=== PATIENT | female | born 1960 | race Caucasian/White ===

== ENCOUNTER 2017-06-24 16:50 | Inpatient (IN) | payer MEDICAID ==
[2017-06-24] MEDS ORDERED: Sodium Chloride 0.9% 10 ML Syringe FLUSH PRN (18:41)
[2017-06-24] MEDS ORDERED: Sodium Chloride 0.9% 1,000 ML IV SCH (18:45)
--- NOTE | 2017-06-24 18:53 | EDM.PDOC ---
ED HPI GENERAL MEDICAL PROBLEM - General Chief Complaint: General Stated Complaint: [facility] Time Seen by Provider: 06/24/17 18:00 Source of Information: Reports: Patient, EMS History Limitations: Reports: Altered Mental Status - History of Present Illness INITIAL COMMENTS - FREE TEXT/NARRATIVE: 57-year-old female with chronic pain syndromes on chronic narcotic medications as well as Ambien and muscle relaxers presents with 24 hours of decreased alertness and weakness. According to her daughter she's been in bed for 24 hours , very lethargic and they cannot find her pain medication. She is able to answer questions, she denies any pain currently, shortness of breath, denies nausea or vomiting or fever. She was admitted one year ago with a very similar presentation which ended up being misuse of prescription medications. Onset: Unknown/Unsure Severity: Moderate Associated Symptoms: Reports: Weakness. Denies: Chest Pain, Cough, Nausea/ Vomiting, Shortness of Breath Denies Pain Score (Numeric/FACES): 0 - Related Data Allergies Allergy/AdvReac Type Severity Reaction Status Date / Time No Known Allergies Allergy Verified 06/24/17 19:36 Home Meds: Home Meds Zolpidem [Ambien] 10 mg PO BEDTIME 11/15/13 [History] Cyclobenzaprine [Flexeril] 10 mg PO TID 06/02/14 [History] Gabapentin [Gabapentin] 800 mg PO TID 06/02/14 [History] Multiple Vitamin 1 tab PO DAILY 11/26/14 [History] Hydrochlorothiazide 1 tab PO DAILY 01/17/15 [History] DULoxetine HCl [Cymbalta] 60 mg PO BID 01/25/16 [History] Metoprolol Succinate [Toprol XL] 50 mg PO BID 04/12/16 [History] amLODIPine Besylate [Amlodipine Besylate] 10 mg PO DAILY 06/20/16 [History] Gabapentin [Neurontin] 400 mg PO ASDIRECTED 06/24/17 [History] Hydrocodone/Acetaminophen [[place] 7.5-325 Tablet] 1 tab PO BID PRN 06/24/17 [ History] Ibuprofen 600 mg PO Q6H PRN 06/24/17 [History] Lisinopril 40 mg PO DAILY 06/24/17 [History] Morphine Sulfate [Morphine Sulfate ER] 1 tab PO BID 06/24/17 [History] traMADol [Ultram] 50 mg PO BID PRN 06/24/17 [History] traZODone 150 mg PO BEDTIME 06/24/17 [History] Past Medical History Cardiovascular History: Reports: Hypertension Gastrointestinal History: Reports: Other (See Below) Other Gastrointestinal History: esophageal reflux gastroenteritis and colitis 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: Musculoskeletal History: Reports: Other (See Below) Other Musculoskeletal History: back pain herniated lumbar intervertebral disc Neurological History: Reports: CVA Psychiatric History: Reports: Addiction, Depression - Infectious Disease History Infectious Disease History: Reports: Other (See Below) Other Infectious Disease History: unable to obtain - Past Surgical History GI Surgical History: Reports: Cholecystectomy Neurological Surgical History: Reports: Discectomy, Lumbar Spine Social & Family History - Family History Family Medical History: Noncontributory - Tobacco Use Smoking Status *Q: Former Smoker Years of Tobacco use: 30 Packs/Tins Daily: 1 Used Tobacco, but Quit: Yes Month Tobacco Last Used: 08/15/11 Second Hand Smoke Exposure: No - Caffeine Use Caffeine Use: Reports: Other Other Caffeine Use: unknown - Alcohol Use Days Per Week of Alcohol Use: 0 - Recreational Drug Use Recreational Drug Use: No Recreational Drug Type: Reports: Other (see below) Other Recreational Drug Type: unable to obtain ED ROS GENERAL - Review of Systems Review Of Systems: See Below Constitutional: Reports: Weakness. Denies: Fever, Chills Respiratory: Denies: Shortness of Breath, Cough Cardiovascular: Denies: Chest Pain GI/Abdominal: Denies: Abdominal Pain, Nausea, Vomiting Skin: Reports: No Symptoms Neurological: Reports: Weakness ED EXAM, GENERAL - Physical Exam Exam: See Below Exam Limited By: Altered Mental Status General Appearance: Lethargic Eye Exam: Bilateral Eye: Other (Opens eyes to voice, appears to have no disconjugate gaze) Neck: Supple Respiratory/Chest: Lungs Clear Cardiovascular: Regular Rate, Rhythm. No: Tachycardia GI/Abdominal: Soft, Non-Tender Extremities: Normal Inspection (She moves her arms and legs slowly but they are symmetric in strength and coordination) Neurological: Slow to Respond Psychiatric: Depressed Mood, Flat Affect Skin Exam: Warm, Dry Course - Vital Signs Last Recorded V/S: Last Vital Signs Temp 97.5 F 06/24/17 17:29 Pulse 94 06/24/17 19:24 Resp 14 06/24/17 17:29 BP 111/74 06/24/17 19:24 Pulse Ox 97 06/24/17 19:24 - Orders/Labs/Meds Orders: Active Orders 24 hr Category Date Time Status Insert Dowling Catheter [Insert Urinary Catheter] [OM.PC] Care 06/24/17 18:45 Ordered Q24H Peripheral IV Care [RC] . DIRECTED Care 06/24/17 18:41 Active Urinary Catheter Assessment [RC] ASDIRECTED Care 06/24/17 18:40 Active Head wo Cont [CT] Stat Exams 06/24/17 18:02 Taken Sodium Chloride 0.9% [Saline Flush] Med 06/24/17 18:41 Active 10 ml FLUSH ASDIRECTED PRN Peripheral IV Insertion Adult [OM.PC] Routine Oth 06/24/17 18:41 Ordered Medication Orders Acetaminophen (Tylenol) 650 mg PO Q4H PRN PRN Reason: Pain (Mild 1-3)/fever Acetaminophen (Tylenol) 650 mg RECTAL Q4H PRN PRN Reason: Mild pain/fever Haloperidol Lactate (Haldol) 2 mg IVPUSH Q2H PRN PRN Reason: Agitation Potassium Chloride 20 meq/Lidocaine HCl 2 ml/ Sodium Chloride 112 mls @ 50 mls/ hr IV Q2H AKIN Stop: 06/24/17 23:29 Last Admin: 06/24/17 20:33 Dose: 50 mls/hr Potassium Chloride/Sodium Chloride (Normal Saline With 20 Meq Kcl) 1,000 mls @ 125 mls/hr IV ASDIRECTED AKIN Last Admin: 06/24/17 20:26 Dose: 125 mls/hr Lorazepam (Ativan) 0.5 - 1 mg IVPUSH Q2H PRN PRN Reason: Agitation Morphine Sulfate (Morphine) 2 - 4 mg IVPUSH Q4H PRN PRN Reason: Pain (severe 7-10) Last Admin: 06/24/17 20:00 Dose: 2 mg Ondansetron HCl (Zofran Odt) 4 mg PO Q6H PRN PRN Reason: Nausea able to take PO Ondansetron HCl (Zofran) 4 mg IVPUSH Q6H PRN PRN Reason: Nausea/Vomiting Sodium Chloride (Saline Flush) 10 ml FLUSH ASDIRECTED PRN PRN Reason: Keep Vein Open Labs: Laboratory Tests 06/24/17 06/24/17 06/24/17 Range/Units 18:12 18:12 18:12 WBC 18.8 H (4.5-11.0) K/uL RBC 5.57 H (3.30-5.50) M/uL Hgb 16.2 H D (12.0-15.0) g/dL Hct 49.4 H (36.0-48.0) % MCV 89 (80-98) fL MCH 29 (27-31) pg MCHC 33 (32-36) % Plt Count 524 H (150-400) K/uL Neut % (Auto) 84 H (36-66) % Lymph % (Auto) 12 L (24-44) % [place] % (Auto) 4 (2-6) % Eos % (Auto) 0 L (2-4) % Baso % (Auto) 0 (0-1) % Sodium 145 (140-148) mmol/L Potassium 2.6 L* (3.6-5.2) mmol/L Chloride 105 (100-108) mmol/L Carbon Dioxide 26 (21-32) mmol/L Anion Gap 16.6 H (5.0-14.0) mmol/L BUN 14 (7-18) mg/dL Creatinine 2.5 H D (0.6-1.0) mg/dL Est Cr Clr Drug Dosing 23.21 mL/min Estimated GFR (MDRD) 20 L (>60) Glucose 121 H (74-106) mg/dL Calcium 9.3 (8.5-10.1) mg/dL Total Bilirubin 0.3 (0.2-1.0) mg/dL AST 22 (15-37) U/L ALT 14 (12-78) U/L Alkaline Phosphatase 119 H (46-116) U/L Creatine Kinase 2 L (26-192) U/L Total Protein 7.9 (6.4-8.2) g/dL Albumin 3.3 L (3.4-5.0) g/dL Globulin 4.6 H (2.3-3.5) g/dL Albumin/Globulin Ratio 0.7 L (1.2-2.2) Meds: Medications Generic Name Dose Route Start Last Admin Trade Name Freq PRN Reason Stop Dose Admin Acetaminophen 650 mg 06/24/17 19:30 Tylenol PO Q4H PRN Pain (Mild 1-3)/fever Acetaminophen 650 mg 06/24/17 19:30 Tylenol RECTAL Q4H PRN Mild pain/fever Haloperidol Lactate 2 mg 06/24/17 20:03 Haldol IVPUSH Q2H PRN Agitation Potassium Chloride 20 meq/ 112 mls @ 50 mls/hr 06/24/17 19:30 06/24/17 20:33 Lidocaine HCl 2 ml/ Sodium IV 06/24/17 23:29 50 mls/hr Chloride Q2H AKIN Administration Potassium Chloride/Sodium Chloride 1,000 mls @ 125 mls/hr 06/24/17 19:30 05/31 20:26 Normal Saline With 20 Meq Kcl IV 125 mls/hr ASDIRECTED AKIN Administration Lorazepam 0.5 - 1 mg 06/24/17 20:05 Ativan IVPUSH Q2H PRN Agitation Morphine Sulfate 2 - 4 mg 06/24/17 19:30 06/24/17 20:00 Morphine IVPUSH 2 mg Q4H PRN Administration Pain (severe 7-10) Ondansetron HCl 4 mg 06/24/17 19:30 Zofran Odt PO Q6H PRN Nausea able to take PO Ondansetron HCl 4 mg 06/24/17 20:04 Zofran IVPUSH Q6H PRN Nausea/Vomiting Sodium Chloride 10 ml 06/24/17 18:41 Saline Flush FLUSH ASDIRECTED PRN Keep Vein Open Discontinued Medications Generic Name Dose Route Start Last Admin Trade Name Freq PRN Reason Stop Dose Admin Sodium Chloride 1,000 mls @ 999 mls/hr 06/24/17 18:45 06/24/17 19:05 Normal Saline IV 06/24/17 19:46 999 mls/hr BOLUS AKIN Administration Potassium Chloride Confirm 06/24/17 19:57 06/24/17 20:34 Kcl 20 Meq In Water 100 Ml Administered 06/24/17 19:58 Not Given Dose 200 mls @ as directed .ROUTE .STK-MED ONE Lidocaine HCl Confirm 06/24/17 19:57 06/24/17 20:34 Xylocaine-Mpf 1% Administered 06/24/17 19:58 Not Given Dose 5 ml .ROUTE .STK-MED ONE Lorazepam 0.5 mg 06/24/17 19:30 06/24/17 19:42 Ativan IVPUSH 0.5 mg Q4H PRN Administration Agitation - Re-Assessments/Exams Free Text/Narrative Re-Assessment/Exam: 06/24/17 18:52 CBC and CMP were obtained as well as a CK. UA will be obtained for drug screen and urinalysis. Drug screen is positive not only for opiates which she is prescribed, but also methamphetamine White count is 18,000. CT of the head showed nothing acute. Potassium returned a critical value of 2.6. I asked Dr. Russell of the hospitalist service to assess the patient for possible admission. GFR is low at 20, creatinine is 2.5. She is obviously volume contracted as well and struggling with an acute kidney stress. Departure - Departure Time of Disposition: 19:25 Disposition: Admitted As Inpatient 67 Condition: Poor Clinical Impression: Acute confusional state, Acute kidney injury, Polysubstance abuse, Hypokalemia - Discharge Information - My Orders Last 24 Hours: My Active Orders 06/24/17 18:02 Head wo Cont [CT] Stat - Assessment/Plan Last 24 Hours: My Active Orders 06/24/17 18:02 Head wo Cont [CT] Stat
--- NOTE | 2017-06-24 19:11 | PCM.HP ---
H&P History of Present Illness - General Date of Service: 06/24/17 Admit Problem/Dx: Admission Diagnosis/Problem Admission Diagnosis/Problem Acute kidney injury Source of Information: Provider. No: Patient History Limitations: Reports: Altered Mental Status - History of Present Illness Initial Comments - Free Text/Narative: Evelyn presents today by ambulance after her daughter found her at home drooling. She is able to answer simple questions but does not really provide much in the way of history. Per EMS report her daughter found her at home today laying in bed and confused. Her daughter saw her yesterday and everything seemed to be normal. Upon arrival to the emergency room she was noted to be very confused and has some tachycardia but otherwise appears stable. She is moving all 4 extremities. She reports back pain but is unable to further describe the pain. She does not endorse shortness of breath, chest pain, abdominal pain. She is not aware of recent change in bowel or bladder habits. She does not have a headache. She has not been around anybody sick. She does not endorse taking any extra pills. Workup in the emergency room was remarkable for acute kidney injury, hypokalemia as well as leukocytosis. Head CT was unremarkable. Urinalysis is pending. Denies Pain Score (Numeric/FACES): 0 - Related Data Allergies/Adverse Reactions: Allergies Allergy/AdvReac Type Severity Reaction Status Date / Time No Known Allergies Allergy Verified 06/24/17 17:30 Home Medications: Home Meds Zolpidem [Ambien] 10 mg PO BEDTIME 11/15/13 [History] Cyclobenzaprine [Flexeril] 10 mg PO TID 06/02/14 [History] Gabapentin [Gabapentin] 800 mg PO TID 06/02/14 [History] Multiple Vitamin 1 tab PO DAILY 11/26/14 [History] Hydrochlorothiazide 1 tab PO DAILY 01/17/15 [History] DULoxetine HCl [Cymbalta] 60 mg PO BID 01/25/16 [History] Metoprolol Succinate [Toprol XL] 50 mg PO BID 04/12/16 [History] amLODIPine Besylate [Amlodipine Besylate] 10 mg PO DAILY 06/20/16 [History] Gabapentin [Neurontin] 400 mg PO ASDIRECTED 06/24/17 [History] Hydrocodone/Acetaminophen [[place] 7.5-325 Tablet] 1 tab PO BID PRN 06/24/17 [ History] Ibuprofen 600 mg PO Q6H PRN 06/24/17 [History] Lisinopril 40 mg PO DAILY 06/24/17 [History] Morphine Sulfate [Morphine Sulfate ER] 1 tab PO BID 06/24/17 [History] traMADol [Ultram] 50 mg PO BID PRN 06/24/17 [History] traZODone 150 mg PO BEDTIME 06/24/17 [History] Past Medical History Cardiovascular History: Reports: Hypertension Gastrointestinal History: Reports: Other (See Below) Other Gastrointestinal History: esophageal reflux gastroenteritis and colitis 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: Musculoskeletal History: Reports: Other (See Below) Other Musculoskeletal History: back pain herniated lumbar intervertebral disc Neurological History: Reports: CVA Psychiatric History: Reports: Addiction, Depression - Infectious Disease History Infectious Disease History: Reports: Other (See Below) Other Infectious Disease History: unable to obtain - Past Surgical History GI Surgical History: Reports: Cholecystectomy Neurological Surgical History: Reports: Discectomy, Lumbar Spine Social & Family History - Family History Family Medical History: Noncontributory - Tobacco Use Smoking Status *Q: Former Smoker Years of Tobacco use: 30 Packs/Tins Daily: 1 Used Tobacco, but Quit: Yes Month Tobacco Last Used: 08/15/11 Second Hand Smoke Exposure: No - Caffeine Use Caffeine Use: Reports: Other Other Caffeine Use: unknown - Alcohol Use Days Per Week of Alcohol Use: 0 - Recreational Drug Use Recreational Drug Use: No Recreational Drug Type: Reports: Other (see below) Other Recreational Drug Type: unable to obtain H&P Review of Systems - Review of Systems: Review Of Systems: See Below Free Text/Narrative: A complete 12 point review of systems was obtained. Pertinent positives and negatives are noted in the history of present illness. All other systems were reviewed and were negative except as noted. Exam - Exam Exam: See Below - Vital Signs Vital Signs: Last Vital Signs Temp 36.4 C 06/24/17 17:29 Pulse 121 H 06/24/17 18:00 Resp 14 06/24/17 17:29 BP 113/87 06/24/17 18:00 Pulse Ox 98 06/24/17 18:00 Weight: 58.513 kg - Exam Quality Assessment: No: Supplemental Oxygen General: Alert, Cooperative, Lethargic. No: Oriented, Mild Distress HEENT: PERRLA, Conjunctiva Clear, Hearing Intact, Normal Nasal Septum. No: Mucosa Moist & [place] (Very dry), Scleral Icterus Neck: Supple, Trachea Midline. No: Lymphadenopathy Lungs: Clear to Auscultation, Normal Respiratory Effort Cardiovascular: Regular Rhythm, Tachycardia GI/Abdominal Exam: Normal Bowel Sounds, Soft, Non-Tender, No Distention Extremities: No Pedal Edema. No: Joint Swelling, Increased Warmth Peripheral Pulses: 2+: Dorsalis Pedis (L), Dorsalis Pedis (R) Skin: Warm, Dry, Intact. No: Rash Neurological: Reflexes Equal Bilateral, Strength Equal Bilateral, Normal Tone. No: Normal Speech, Clonus Neuro Extensive - Mental Status: Alert, Slow Response to Commands. No: Oriented x3 Neuro Extensive - Motor, Sensory, Reflexes: CN II-XII Intact, Dysarthria. No: Abnormal Motor, Tremor DTR: 1+: Patella (L), Patella (R) Psychiatric: Alert. No: Agitated - Patient Data Lab Results Last 24 hrs: Laboratory Results - last 24 hr 06/24/17 06/24/17 06/24/17 Range/Units 18:12 18:12 18:12 WBC 18.8 H (4.5-11.0) K/uL RBC 5.57 H (3.30-5.50) M/uL Hgb 16.2 H D (12.0-15.0) g/dL Hct 49.4 H (36.0-48.0) % MCV 89 (80-98) fL MCH 29 (27-31) pg MCHC 33 (32-36) % Plt Count 524 H (150-400) K/uL Neut % (Auto) 84 H (36-66) % Lymph % (Auto) 12 L (24-44) % [place] % (Auto) 4 (2-6) % Eos % (Auto) 0 L (2-4) % Baso % (Auto) 0 (0-1) % Sodium 145 (140-148) mmol/L Potassium 2.6 L* (3.6-5.2) mmol/L Chloride 105 (100-108) mmol/L Carbon Dioxide 26 (21-32) mmol/L Anion Gap 16.6 H (5.0-14.0) mmol/L BUN 14 (7-18) mg/dL Creatinine 2.5 H D (0.6-1.0) mg/dL Est Cr Clr Drug Dosing 23.21 mL/min Estimated GFR (MDRD) 20 L (>60) Glucose 121 H (74-106) mg/dL Calcium 9.3 (8.5-10.1) mg/dL Total Bilirubin 0.3 (0.2-1.0) mg/dL AST 22 (15-37) U/L ALT 14 (12-78) U/L Alkaline Phosphatase 119 H (46-116) U/L Creatine Kinase 2 L (26-192) U/L Total Protein 7.9 (6.4-8.2) g/dL Albumin 3.3 L (3.4-5.0) g/dL Globulin 4.6 H (2.3-3.5) g/dL Albumin/Globulin Ratio 0.7 L (1.2-2.2) Result Diagrams: 06/24/17 18:12 06/24/17 18:12 Imaging Impressions Last 24 hrs: Head CT - images personally reviewed - this appears normal with no evidence for bleeding, stroke or intracranial abnormality *Q Meaningful Use (ADM) - VTE *Q VTE Criteria *Q: - VTE Risk Assess *Q Each Risk Factor Represents 1 Point: Age 41 - 59 years Total Score 1 Point Risk Factors: 1 Each Risk Factor Represents 2 Points: None Total Score 2 Point Risk Factors: 0 Each Risk Factor Represents 3 Points: None Total Score 3 Point Risk Factors: 0 Each Risk Factor Represents 5 Points: None Total Score 5 Point Risk Factors: 0 Venous Thromboembolism Risk Factor Score *Q: 1 - Stroke *Q Stroke Criteria *Q: - AMI *Q AMI Criteria *Q: - Problem List (1) Acute kidney injury SNOMED Code(s): 80299557 ICD Code: N17.9 - ACUTE KIDNEY FAILURE, UNSPECIFIED Status: Acute Current Visit: Yes (2) Hypokalemia SNOMED Code(s): 01768088 ICD Code: E87.6 - HYPOKALEMIA Status: Acute Current Visit: Yes (3) Acute confusional state SNOMED Code(s): 8934449 ICD Code: F05 - DELIRIUM DUE TO KNOWN PHYSIOLOGICAL CONDITION Status: Acute Current Visit: Yes (4) Chronic back pain SNOMED Code(s): 047930355 ICD Code: M54.9 - DORSALGIA, UNSPECIFIED; G89.29 - OTHER CHRONIC PAIN Status: Chronic Current Visit: No Problem List Initiated/Reviewed/Updated: Yes Orders Last 24hrs: Active Orders 24 hr Category Date Time Status Patient Status Manage Transfer [TRANSFER] Routine ADT 06/24/17 18:58 Ordered Insert Dowling Catheter [Insert Urinary Catheter] [OM.PC] Care 06/24/17 18:45 Ordered Q24H Peripheral IV Care [RC] . DIRECTED Care 06/24/17 18:41 Active Urinary Catheter Assessment [RC] ASDIRECTED Care 06/24/17 18:40 Active Head wo Cont [CT] Stat Exams 06/24/17 18:02 Taken DRUG SCREEN, URINE [URCHEM] Stat Lab 06/24/17 18:40 Uncollected UA W/MICROSCOPIC [URIN] Stat Lab 06/24/17 18:39 Uncollected Sodium Chloride 0.9% [Normal Saline] 1,000 ml Med 06/24/17 18:45 Active IV BOLUS Sodium Chloride 0.9% [Saline Flush] Med 06/24/17 18:41 Active 10 ml FLUSH ASDIRECTED PRN Peripheral IV Insertion Adult [OM.PC] Routine Oth 06/24/17 18:41 Ordered Resuscitation Status Routine Resus Stat 06/24/17 19:00 Ordered Medication Orders Sodium Chloride (Normal Saline) 1,000 mls @ 999 mls/hr IV BOLUS AKIN Stop: 06/24/17 19:46 Last Admin: 06/24/17 19:05 Dose: 999 mls/hr Sodium Chloride (Saline Flush) 10 ml FLUSH ASDIRECTED PRN PRN Reason: Keep Vein Open Assessment/Plan Comment:: ASSESSMENT AND PLAN - Acute confusional state - etiology not entirely clear at this time. She has acute kidney injury and impaired clearance of usual medications certainly could be contributing. Urine sample is pending and infection is possible. Lungs are clear. Head CT is normal. Examination relatively benign other than the confusion. Patient is very dehydrated. -IV fluids -Follow-up urine sample -ICU admission for close monitoring -Haldol for agitation -Hold home medications Acute kidney injury - significant dehydration based on examination. Creatinine is 2.5 with a baseline likely less than 1. -IV fluids -Labs in the morning Hypokalemia - significant reduction at 2.6. Planning to supplement tonight with IV potassium. -Potassium 40 mEq now -Potassium and IV fluids -Labs in the morning Chronic back pain - patient appears comfortable at this time. Planning to hold usual medications until mental status clears up. Maintenance issues - - DVT prophylaxis - mechanical - GI prophylaxis - not indicated - Nutrition - nothing by mouth until she wakes up and is more clear - Dowling catheter - will be placed for intake and output monitoring with decreased level of consciousness CODE STATUS - full code Admission justification - This patient will be admitted for inpatient services and is medically appropriate meeting medical necessity for inpatient admission as outlined in my documentation. I reasonably expect the patient will require inpatient services that span a period time over 2 midnights. I reasonably expect this patient to be discharged or transferred within 96 hours after admission to the [facility]. Disposition - anticipate discharge to home after the hospital stay Primary care physician - Fernanda Russell M.D.
[2017-06-24] MEDS ORDERED: Acetaminophen 650 MG Supp RECTAL PRN (19:30)
[2017-06-24] MEDS ORDERED: Acetaminophen 325 MG Tab PO PRN (19:30)
[2017-06-24] MEDS ORDERED: LORazepam 2 MG/ML MDV IVPUSH PRN (19:30)
[2017-06-24] MEDS ORDERED: Ondansetron 4 MG Tab.DIS PO PRN (19:30)
[2017-06-24] MEDS: Morphine 2 MG/ML Syringe IVPUSH PRN (20:00)
[2017-06-24] MEDS ORDERED: Ondansetron 4 MG/2 ML SDV IVPUSH PRN (20:04)
[2017-06-24] MEDS: NS + KCl 20mEq/L 1,000 ML IV SCH (20:26)
[2017-06-24] MEDS: Potassium Chloride 20 MEQ, Lidocaine 1% 2 ML in Sodium Chloride 0.9% 100 ML IV SCH ×2 (20:33→22:36)
[2017-06-24] MEDS: LORazepam 2 MG/ML MDV IVPUSH PRN (22:04)
[2017-06-24] MEDS: Haloperidol Lactate 5 MG/ML SDV IVPUSH PRN (22:35)
[2017-06-25] MEDS: Morphine 2 MG/ML Syringe IVPUSH PRN ×5 (00:08→20:02)
[2017-06-25] MEDS: LORazepam 2 MG/ML MDV IVPUSH PRN ×4 (02:21→19:29)
[2017-06-25] MEDS: NS + KCl 20mEq/L 1,000 ML IV SCH ×3 (04:36→21:26)
[2017-06-25] MEDS ORDERED: Haloperidol Lactate 5 MG/ML SDV IVPUSH ONE (06:29)
[2017-06-25] MEDS: Acetaminophen/HYDROcodone 325-7.5 MG Tab PO PRN ×3 (06:50→17:32)
--- NOTE | 2017-06-25 08:52 | PCM.PN ---
- General Info Date of Service: 06/25/17 - Review of Systems General: Reports: Weakness Musculoskeletal: Reports: Back Pain Psychiatric: Reports: Confusion, Agitation Systems Review Comment:: Difficulty with agitation and restlessness overnight. She received multiple doses of lorazepam as well as Haldol. Still agitated and restless this morning. Continually calling out for her daughter Jina. Urine did not show evidence for infection. Drug screen positive for opiates, tricyclics and methamphetamine. She is more alert today than yesterday but still minimally oriented. She complains of chronic back pain. Does not endorse abdominal pain or shortness of breath. - Patient Data Vitals - Most Recent: Last Vital Signs Temp 37.4 C 06/25/17 04:00 Pulse 115 H 06/24/17 21:30 Resp 20 06/25/17 06:00 BP 168/110 H 06/25/17 06:00 Pulse Ox 96 06/25/17 06:00 Weight - Most Recent: 56.926 kg I&O - Last 24 Hours: Intake & Output 06/24/17 06/25/17 06/25/17 22:59 06:59 14:59 Intake Total 1955 Balance 1955 Lab Results Last 24 Hours: Laboratory Results - last 24 hr 06/24/17 06/24/17 06/25/17 Range/Units 19:49 19:49 05:59 WBC 12.8 H (4.5-11.0) K/uL RBC 4.29 (3.30-5.50) M/uL Hgb 12.4 D (12.0-15.0) g/dL Hct 38.6 (36.0-48.0) % MCV 90 (80-98) fL MCH 29 (27-31) pg MCHC 32 (32-36) % Plt Count 399 (150-400) K/uL Sodium (140-148) mmol/L Potassium (3.6-5.2) mmol/L Chloride (100-108) mmol/L Carbon Dioxide (21-32) mmol/L Anion Gap (5.0-14.0) mmol/L BUN (7-18) mg/dL Creatinine (0.6-1.0) mg/dL Est Cr Clr Drug Dosing mL/min Estimated GFR (MDRD) (>60) Glucose (74-106) mg/dL Calcium (8.5-10.1) mg/dL Magnesium (1.8-2.4) mg/dL Urine Color Yellow Urine Appearance Slightly cloudy Urine pH 5.0 (4.5-8.0) Ur Specific Coy 1.025 (1.008-1.030) Urine Protein 30 H (NEGATIVE) mg/dL Urine Glucose (UA) Normal (NEGATIVE) mg/dL Urine Ketones 15 H (NEGATIVE) mg/dL Urine Occult Blood Negative (NEGATIVE) Urine Nitrite Negative (NEGATIVE) Urine Bilirubin Small (NEGATIVE) Urine Urobilinogen 1 (NORMAL) mg/dL Ur Leukocyte Esterase Negative (NEGATIVE) Urine RBC 0-5 (0-5) Urine WBC 0-5 (0-5) Ur Epithelial Cells Few Amorphous Sediment Few Urine Bacteria Few Urine Mucus Many Urine Other Urine Opiates Screen Positive H (NEGATIVE) Ur Oxycodone Screen Positive H (NEGATIVE) Urine Methadone Screen Negative (NEGATIVE) Ur Propoxyphene Screen Negative (NEGATIVE) Ur Barbiturates Screen Negative (NEGATIVE) Ur Tricyclics Screen Positive H (NEGATIVE) Ur Phencyclidine Scrn Negative (NEGATIVE) Ur Amphetamine Screen Negative (NEGATIVE) U Methamphetamines Scrn Positive H (NEGATIVE) Urine MDMA Screen Negative (NEGATIVE) U Benzodiazepines Scrn Negative (NEGATIVE) U Cocaine Metab Screen Negative (NEGATIVE) U Marijuana (THC) Screen Negative (NEGATIVE) 06/25/17 Range/Units 05:59 WBC (4.5-11.0) K/uL RBC (3.30-5.50) M/uL Hgb (12.0-15.0) g/dL Hct (36.0-48.0) % MCV (80-98) fL MCH (27-31) pg MCHC (32-36) % Plt Count (150-400) K/uL Sodium 146 (140-148) mmol/L Potassium 3.1 L (3.6-5.2) mmol/L Chloride 112 H (100-108) mmol/L Carbon Dioxide 21 (21-32) mmol/L Anion Gap 16.1 H (5.0-14.0) mmol/L BUN 18 (7-18) mg/dL Creatinine 1.9 H (0.6-1.0) mg/dL Est Cr Clr Drug Dosing 29.71 mL/min Estimated GFR (MDRD) 27 L (>60) Glucose 124 H (74-106) mg/dL Calcium 8.3 L (8.5-10.1) mg/dL Magnesium 1.8 (1.8-2.4) mg/dL Urine Color Urine Appearance Urine pH (4.5-8.0) Ur Specific Coy (1.008-1.030) Urine Protein (NEGATIVE) mg/dL Urine Glucose (UA) (NEGATIVE) mg/dL Urine Ketones (NEGATIVE) mg/dL Urine Occult Blood (NEGATIVE) Urine Nitrite (NEGATIVE) Urine Bilirubin (NEGATIVE) Urine Urobilinogen (NORMAL) mg/dL Ur Leukocyte Esterase (NEGATIVE) Urine RBC (0-5) Urine WBC (0-5) Ur Epithelial Cells Amorphous Sediment Urine Bacteria Urine Mucus Urine Other Urine Opiates Screen (NEGATIVE) Ur Oxycodone Screen (NEGATIVE) Urine Methadone Screen (NEGATIVE) Ur Propoxyphene Screen (NEGATIVE) Ur Barbiturates Screen (NEGATIVE) Ur Tricyclics Screen (NEGATIVE) Ur Phencyclidine Scrn (NEGATIVE) Ur Amphetamine Screen (NEGATIVE) U Methamphetamines Scrn (NEGATIVE) Urine MDMA Screen (NEGATIVE) U Benzodiazepines Scrn (NEGATIVE) U Cocaine Metab Screen (NEGATIVE) U Marijuana (THC) Screen (NEGATIVE) Med Orders - Current: Current Medications Acetaminophen (Tylenol) 650 mg PO Q4H PRN PRN Reason: Pain (Mild 1-3)/fever Acetaminophen (Tylenol) 650 mg RECTAL Q4H PRN PRN Reason: Mild pain/fever Hydrocodone Bitart/Acetaminophen ([place]olph 325-7.5 Mg) 1 tab PO Q4H PRN PRN Reason: Pain Last Admin: 06/25/17 06:50 Dose: 1 tab Divalproex Sodium (Divalproex Sodium) 250 mg PO TIDMEALS [facility] Haloperidol Lactate (Haldol) 2 mg IVPUSH Q2H PRN PRN Reason: Agitation Last Admin: 06/24/17 22:35 Dose: 2 mg Potassium Chloride/Sodium Chloride (Normal Saline With 20 Meq Kcl) 1,000 mls @ 125 mls/hr IV ASDIRECTED AKIN Last Admin: 06/25/17 04:36 Dose: 125 mls/hr Lorazepam (Ativan) 0.5 - 1 mg IVPUSH Q2H PRN PRN Reason: Agitation Last Admin: 06/25/17 04:30 Dose: 1 mg Morphine Sulfate (Morphine) 2 - 4 mg IVPUSH Q4H PRN PRN Reason: Pain (severe 7-10) Last Admin: 06/25/17 03:16 Dose: 4 mg Morphine Sulfate (Ms Contin) mg PO BID [facility] Non-Formulary Medication (Duloxetine Hcl [Cymbalta]) 60 mg PO BID [facility] Ondansetron HCl (Zofran Odt) 4 mg PO Q6H PRN PRN Reason: Nausea able to take PO Ondansetron HCl (Zofran) 4 mg IVPUSH Q6H PRN PRN Reason: Nausea/Vomiting Potassium Chloride (Klor-Con M20) 40 meq PO ONETIME ONE Stop: 06/25/17 08:50 Sodium Chloride (Saline Flush) 10 ml FLUSH ASDIRECTED PRN PRN Reason: Keep Vein Open Discontinued Medications Haloperidol Lactate (Haldol) 5 mg IVPUSH ONETIME ONE Stop: 06/25/17 06:30 Last Admin: 06/25/17 06:42 Dose: 5 mg Sodium Chloride (Normal Saline) 1,000 mls @ 999 mls/hr IV BOLUS AKIN Stop: 06/24/17 19:46 Last Admin: 06/24/17 19:05 Dose: 999 mls/hr Potassium Chloride 20 meq/Lidocaine HCl 2 ml/ Sodium Chloride 112 mls @ 50 mls/ hr IV Q2H AKIN Stop: 06/24/17 23:29 Last Admin: 06/24/17 22:36 Dose: 50 mls/hr Potassium Chloride (Kcl 20 Meq In Water 100 Ml) Confirm Administered Dose 200 mls @ as directed .ROUTE .STK-MED ONE Stop: 06/24/17 19:58 Last Admin: 06/24/17 20:34 Dose: Not Given Lidocaine HCl (Xylocaine-Mpf 1%) Confirm Administered Dose 5 ml .ROUTE .STK-MED ONE Stop: 06/24/17 19:58 Last Admin: 06/24/17 20:34 Dose: Not Given Lorazepam (Ativan) 0.5 mg IVPUSH Q4H PRN PRN Reason: Agitation Last Admin: 06/24/17 19:42 Dose: 0.5 mg - Exam Quality Assessment: No: Supplemental Oxygen General: Alert, Cooperative, Moderate Distress. No: Oriented HEENT: Pupils Equal Lungs: Clear to Auscultation, Normal Respiratory Effort Cardiovascular: Regular Rhythm, Tachycardia Extremities: No Pedal Edema. No: Increased Warmth Skin: Warm, Dry Psy/Mental Status: Alert, Anxious, Agitated - Problem List & Annotations (1) Acute kidney injury SNOMED Code(s): 23399176 Code(s): N17.9 - ACUTE KIDNEY FAILURE, UNSPECIFIED Status: Acute Current Visit: Yes (2) Hypokalemia SNOMED Code(s): 34958230 Code(s): E87.6 - HYPOKALEMIA Status: Acute Current Visit: Yes (3) Acute confusional state SNOMED Code(s): 6640217 Code(s): F05 - DELIRIUM DUE TO KNOWN PHYSIOLOGICAL CONDITION Status: Acute Current Visit: Yes (4) Chronic back pain SNOMED Code(s): 297786460 Code(s): M54.9 - DORSALGIA, UNSPECIFIED; G89.29 - OTHER CHRONIC PAIN Status : Chronic Current Visit: No - Problem List Review Problem List Initiated/Reviewed/Updated: Yes - My Orders Last 24 Hours: My Active Orders 06/24/17 19:00 Resuscitation Status Routine 06/24/17 19:30 Patient Status [ADT] Routine Bedrest Bedside Commode [RC] ASDIRECTED Cardiac Monitoring [RC] Q6H Intake and Output [RC] QSHIFT Notify Provider Vital Signs [RC] ASDIRECTED Oxygen Therapy [RC] PRN Pulse Oximetry [RC] CONTINUOUS Up With Assistance [RC] ASDIRECTED VTE/DVT Education [RC] Per Unit Routine Vital Signs [RC] Q2HR Acetaminophen [Tylenol] 650 mg PO Q4H PRN Acetaminophen [Tylenol] 650 mg RECTAL Q4H PRN Morphine 2 - 4 mg IVPUSH Q4H PRN NS + KCl 20mEq/L [Normal Saline with 20 mEq KCl] 1,000 ml IV ASDIRECTED Ondansetron [Zofran ODT] 4 mg PO Q6H PRN Sequential Compression Device [OM.PC] Per Unit Routine 06/24/17 20:03 Haloperidol Lactate [Haldol] 2 mg IVPUSH Q2H PRN 06/24/17 20:04 Ondansetron [Zofran] 4 mg IVPUSH Q6H PRN 06/24/17 20:05 LORazepam [Ativan] 0.5 - 1 mg IVPUSH Q2H PRN 06/24/17 20:14 Restraint Initiate Non-VIOL/Non-SD [OM.PC] Stat 06/24/17 Dinner Nothing per Oral Now Diet [DIET] 06/25/17 06:28 Acetaminophen/HYDROcodone [Randolph 325-7.5 MG] 1 tab PO Q4H PRN 06/25/17 08:49 Potassium Chloride [Klor-Con M20] 40 meq PO ONETIME ONE 06/25/17 09:00 DULoxetine HCl [Cymbalta] 60 mg PO BID Divalproex Sodium 250 mg PO TIDMEALS Morphine [MS Contin] 1 tab PO BID 06/26/17 05:00 CBC W/O DIFF,HEMOGRAM [HEME] Timed (1) COMPREHENSIVE METABOLIC PN,CMP [CHEM] Timed - Plan Plan:: ASSESSMENT AND PLAN - Acute confusional state - etiology not entirely clear but suspect withdrawal syndrome and possibly withdrawal to multiple etiologies. Drug screen was positive for methamphetamine and this could be contributing. Almost seems to be a component of alcohol withdrawal. More alert but still very delirious. -Continue hydration -Trial of scheduled Depakote -Lorazepam for anxiety/agitation -Haldol for agitation -Restart chronic pain medications Acute kidney injury - secondary to dehydration, kidney function slowly improving. -Continue IV fluids -Labs in the morning Hypokalemia - some improvement with supplementation yesterday. Will need additional supplementation today. -Potassium 40 mEq now -Potassium and IV fluids -Labs in the morning Chronic back pain - plan to restart at least some of her usual pain medications as there is less evidence for lethargy this morning. -Restart morphine and hydrocodone -Hold other meds for now, consider restarting gabapentin this afternoon Maintenance issues - - DVT prophylaxis - mechanical - GI prophylaxis - not indicated - Nutrition - clear liquids and advance as tolerated - Dowling catheter - placed in the emergency room but removed overnight due to agitation Disposition - anticipate discharge to home after the hospital stay Primary care physician - Fernanda Russell M.D.
[2017-06-25] MEDS ORDERED: Potassium Chloride 20 MEQ Tab.ER PO ONE (09:30)
[2017-06-25] MEDS: DULoxetine 30 MG Cap PO SCH ×2 (09:40→20:40)
[2017-06-25] MEDS: Divalproex Sodium Delayed-Release 250 MG Tab.CR PO SCH ×3 (09:40→17:33)
[2017-06-25] MEDS: Morphine 30 MG Tab.ER PO SCH ×2 (09:41→20:40)
[2017-06-25] MEDS: Haloperidol Lactate 5 MG/ML SDV IVPUSH PRN ×5 (12:07→22:52)
[2017-06-25] MEDS: LORazepam 1 MG Tab PO PRN ×2 (13:48→17:32)
[2017-06-25] MEDS: Gabapentin 400 MG Cap PO SCH (20:46)
[2017-06-26] MEDS: NS + KCl 20mEq/L 1,000 ML IV SCH (05:08)
[2017-06-26] MEDS: Acetaminophen/HYDROcodone 325-7.5 MG Tab PO PRN (07:35)
[2017-06-26] MEDS: Divalproex Sodium Delayed-Release 250 MG Tab.CR PO SCH (07:36)
[2017-06-26 07:44] VITALS: BP 140/106
[2017-06-26] MEDS: LORazepam 1 MG Tab PO PRN (08:13)
[2017-06-26] MEDS: DULoxetine 30 MG Cap PO SCH (08:14)
[2017-06-26] MEDS: Morphine 30 MG Tab.ER PO SCH (08:14)
[2017-06-26] MEDS: Gabapentin 400 MG Cap PO SCH (08:15)
--- NOTE | 2017-06-26 09:29 | PCM.DCSUM1 ---
Discharge Summary - Hospital Course Brief History: 57-year-old female with chronic pain secondary to RSD who presented with acute confusional state. She was admitted for management of delirium, acute kidney injury and hypokalemia. - Discharge Data Discharge Date: 06/26/17 Discharge Disposition: Home, Self-Care 01 Condition: Fair - Discharge Diagnosis/Problem(s) (1) Acute kidney injury SNOMED Code(s): 83405386 ICD Code: N17.9 - ACUTE KIDNEY FAILURE, UNSPECIFIED Status: Acute (2) Hypokalemia SNOMED Code(s): 19796827 ICD Code: E87.6 - HYPOKALEMIA Status: Acute (3) Acute confusional state SNOMED Code(s): 1871176 ICD Code: F05 - DELIRIUM DUE TO KNOWN PHYSIOLOGICAL CONDITION Status: Acute (4) Chronic back pain SNOMED Code(s): 402628344 ICD Code: M54.9 - DORSALGIA, UNSPECIFIED; G89.29 - OTHER CHRONIC PAIN Status: Chronic - Patient Summary/Data Hospital Course: Evelyn presented to the emergency room by ambulance with weakness and confusion. Workup in the emergency room revealed acute kidney injury and significant hypokalemia as well as delirium. There is no evidence for infection at the time of presentation. She was admitted to the intensive care unit for further management as well as hydration and electrolyte replacement. Overnight following admission she became agitated and required a combination of lorazepam as well as Haldol with some but suboptimal improvement in the agitation. She did require restraints for a short while because of some aggression. She received IV fluids and potassium supplementation. The morning after admission her kidney function has improved some. Potassium level remains low. Throughout the day with continued IV fluid hydration and aggressive symptom management with a variety of antipsychotics and anti-anxiety medications. I did start her on Depakote for mood stabilizer as well. The exact cause for the agitation was not entirely clear. Her drug screen did not reveal concerning findings. There is no evidence for infection. She did not endorse any unusual ingestions of prescribed or illicit drugs. Fortunately as the day went on her mood started to stabilize and by the morning of discharge her mood has returned to normal. Kidney function is now back to normal. Potassium level remains mildly low but otherwise clinically she is doing well. At this point the exact cause for her difficulty is not entirely clear. I'm suspicious that she may have had acute on chronic dehydration leading to her knee injury and hypokalemia. This probably is complicated by chronically poor oral intake as well as use of a diuretic medication. I have recommended that she discontinue her hydrochlorothiazide. Hopefully her blood pressure can be controlled using lisinopril, metoprolol and amlodipine. She is back on her usual medications doing well. She is interested in going home and I believe she is safe for hospital discharge. She'll be going home with her daughter. No new prescriptions were made at the time of discharge but I did encourage her to discontinue her hydrochlorothiazide. I recommended follow-up in a few days to make sure her blood pressure remains stable. - Patient Instructions Diet: Regular Diet as Tolerated Activity: As Tolerated Driving: Do Not Drive (for the next two days) Showering/Bathing: May Shower Notify Provider of: Fever, Increased Pain, Nausea and/or Vomiting Other/Special Instructions: 1. You were in the hospital for management of acute confusional state, acute kidney injury and hypokalemia. I suspect all of these were related to severe dehydration in the setting of poor water and food intake complicated by the use of a diuretic. Your condition has improved with hydration and potassium supplementation. I would encourage you to drink plenty of fluids each day. Current recommendations are for 64 ounces of water to be consumed each day. 2. Stop taking the hydrochlorothiazide because this is worsening your dehydration. 3. Continue your other medications as previously prescribed. 4. Follow up with your primary care physician in 4-5 days to recheck your blood pressure because we stopped your edge core thiazide. 5. Seek medical attention if you develop significant confusion, severe shortness of breath, chest pain, severe headache or blurry vision/double vision. - Discharge Plan Home Medications: Home Meds Zolpidem [Ambien] 10 mg PO BEDTIME 11/15/13 [History] Cyclobenzaprine [Flexeril] 10 mg PO TID 06/02/14 [History] Gabapentin 800 mg PO TID 06/02/14 [History] Multiple Vitamin 1 tab PO DAILY 11/26/14 [History] DULoxetine HCl [Cymbalta] 60 mg PO BID 01/25/16 [History] Metoprolol Succinate [Toprol XL] 50 mg PO BID 04/12/16 [History] amLODIPine Besylate [Amlodipine Besylate] 10 mg PO DAILY 06/20/16 [History] Gabapentin [Neurontin] 400 mg PO ASDIRECTED 06/24/17 [History] Hydrocodone/Acetaminophen [[place] 7.5-325 Tablet] 1 tab PO BID PRN 06/24/17 [ History] Ibuprofen 600 mg PO Q6H PRN 06/24/17 [History] Lisinopril 40 mg PO DAILY 06/24/17 [History] Morphine Sulfate [Morphine Sulfate ER] 1 tab PO BID 06/24/17 [History] traMADol [Ultram] 50 mg PO BID PRN 06/24/17 [History] traZODone 150 mg PO BEDTIME 06/24/17 [History] Patient Handouts: Hypokalemia, Rehydration, Adult Referrals: Fernanda Ramirez NP [Consulting Physician] - (4-5 days - f/u hospital stay, check BP) - Discharge Summary/Plan Comment DC Time >30 min.: No (25) - Patient Data Vitals - Most Recent: Last Vital Signs Temp 37.4 C 06/26/17 07:41 Pulse 92 06/26/17 07:41 Resp 18 06/26/17 07:41 BP 140/106 H 06/26/17 07:41 Pulse Ox 92 L 06/26/17 05:13 Weight - Most Recent: 56.926 kg I&O - Last 24 hours: Intake & Output 06/25/17 06/26/17 06/26/17 22:59 06:59 14:59 Intake Total 1256 1495 360 Output Total 475 1000 150 Balance 781 495 210 Lab Results - Last 24 hrs: Laboratory Results - last 24 hr 06/26/17 06/26/17 Range/Units 05:16 05:16 WBC 9.7 (4.5-11.0) K/uL RBC 3.77 (3.30-5.50) M/uL Hgb 11.1 L (12.0-15.0) g/dL Hct 35.0 L (36.0-48.0) % MCV 93 (80-98) fL MCH 29 (27-31) pg MCHC 32 (32-36) % Plt Count 266 (150-400) K/uL Sodium 149 H (140-148) mmol/L Potassium 3.0 L (3.6-5.2) mmol/L Chloride 115 H (100-108) mmol/L Carbon Dioxide 21 (21-32) mmol/L Anion Gap 16.0 H (5.0-14.0) mmol/L BUN 5 L D (7-18) mg/dL Creatinine 1.0 (0.6-1.0) mg/dL Est Cr Clr Drug Dosing 56.45 mL/min Estimated GFR (MDRD) 57 L (>60) Glucose 79 (74-106) mg/dL Calcium 7.8 L (8.5-10.1) mg/dL Total Bilirubin 0.5 D (0.2-1.0) mg/dL AST 22 (15-37) U/L ALT 14 (12-78) U/L Alkaline Phosphatase 93 (46-116) U/L Total Protein 5.9 L (6.4-8.2) g/dL Albumin 2.5 L (3.4-5.0) g/dL Globulin 3.4 (2.3-3.5) g/dL Albumin/Globulin Ratio 0.7 L (1.2-2.2) Med Orders - Current: Current Medications Acetaminophen (Tylenol) 650 mg PO Q4H PRN PRN Reason: Pain (Mild 1-3)/fever Acetaminophen (Tylenol) 650 mg RECTAL Q4H PRN PRN Reason: Mild pain/fever Hydrocodone Bitart/Acetaminophen ([place] 325-7.5 Mg) 1 tab PO Q4H PRN PRN Reason: Pain Last Admin: 06/26/17 07:35 Dose: 1 tab Divalproex Sodium (Divalproex Sodium) 250 mg PO TIDMEALS [facility] Last Admin: 06/26/17 07:36 Dose: 250 mg Duloxetine HCl (Cymbalta) 60 mg PO BID [facility] Last Admin: 06/26/17 08:14 Dose: 60 mg Gabapentin (Neurontin) 800 mg PO TID [facility] Last Admin: 06/26/17 08:15 Dose: 800 mg Haloperidol Lactate (Haldol) 2 mg IVPUSH Q2H PRN PRN Reason: Agitation Last Admin: 06/25/17 22:52 Dose: 2 mg Potassium Chloride/Sodium Chloride (Normal Saline With 20 Meq Kcl) 1,000 mls @ 125 mls/hr IV ASDIRECTED [facility] Last Admin: 06/26/17 05:08 Dose: 125 mls/hr Lorazepam (Ativan) 0.5 - 1 mg IVPUSH Q2H PRN PRN Reason: Agitation Last Admin: 06/25/17 19:29 Dose: 1 mg Lorazepam (Ativan) 1 mg PO Q4H PRN PRN Reason: Agitation Last Admin: 06/26/17 08:13 Dose: 1 mg Morphine Sulfate (Morphine) 2 - 4 mg IVPUSH Q4H PRN PRN Reason: Pain (severe 7-10) Last Admin: 06/25/17 20:02 Dose: 2 mg Morphine Sulfate (Ms Contin) 30 mg PO BID [facility] Last Admin: 06/26/17 08:14 Dose: 30 mg Ondansetron HCl (Zofran Odt) 4 mg PO Q6H PRN PRN Reason: Nausea able to take PO Last Admin: 06/25/17 20:10 Dose: 4 mg Ondansetron HCl (Zofran) 4 mg IVPUSH Q6H PRN PRN Reason: Nausea/Vomiting Sodium Chloride (Saline Flush) 10 ml FLUSH ASDIRECTED PRN PRN Reason: Keep Vein Open Discontinued Medications Haloperidol Lactate (Haldol) 5 mg IVPUSH ONETIME ONE Stop: 06/25/17 06:30 Last Admin: 06/25/17 06:42 Dose: 5 mg Sodium Chloride (Normal Saline) 1,000 mls @ 999 mls/hr IV BOLUS [facility] Stop: 06/24/17 19:46 Last Admin: 06/24/17 19:05 Dose: 999 mls/hr Potassium Chloride 20 meq/Lidocaine HCl 2 ml/ Sodium Chloride 112 mls @ 50 mls/ hr IV Q2H [facility] Stop: 06/24/17 23:29 Last Admin: 06/24/17 22:36 Dose: 50 mls/hr Potassium Chloride (Kcl 20 Meq In Water 100 Ml) Confirm Administered Dose 200 mls @ as directed .ROUTE .STK-MED ONE Stop: 06/24/17 19:58 Last Admin: 06/24/17 20:34 Dose: Not Given Lidocaine HCl (Xylocaine-Mpf 1%) Confirm Administered Dose 5 ml .ROUTE .STK-MED ONE Stop: 06/24/17 19:58 Last Admin: 06/24/17 20:34 Dose: Not Given Lorazepam (Ativan) 0.5 mg IVPUSH Q4H PRN PRN Reason: Agitation Last Admin: 06/24/17 19:42 Dose: 0.5 mg Potassium Chloride (Klor-Con M20) 40 meq PO ONETIME ONE Stop: 06/25/17 09:31 Last Admin: 06/25/17 09:40 Dose: 40 meq - Exam Quality Assessment: Denies: Supplemental Oxygen General: Reports: Alert, Oriented, Cooperative, No Acute Distress Neck: Reports: Supple Lungs: Reports: Normal Respiratory Effort GI/Abdominal Exam: No Distention Extremities: No Pedal Edema Skin: Reports: Warm, Dry Psy/Mental Status: Reports: Alert, Normal Affect. Denies: Anxious, Agitated *Q Meaningful Use (DIS) - VTE *Q VTE Criteria *Q: - Stroke *Q Stroke Criteria *Q: - AMI *Q AMI Criteria *Q:
== END 2017-06-26 10:00 | disposition home or self-care (01) | DRG 641 ==
LOC: JP.ED 16:57 → JP.ICU 18:58
PROVIDERS: ADMIT Internal Medicine; ATTEND Internal Medicine
DX: E86.0 Dehydration (principal); F05 Delirium due to known physiological condition; N17.9 Acute kidney failure, unspecified; E87.6 Hypokalemia; I10 Essential (primary) hypertension; Z86.73 Personal history of transient ischemic attack (TIA), and cerebral infarction without residual deficits; F32.9 Major depressive disorder, single episode, unspecified; Z87.891 Personal history of nicotine dependence; M54.9 Dorsalgia, unspecified; G89.29 Other chronic pain; R45.1 Restlessness and agitation; F19.10 Other psychoactive substance abuse, uncomplicated; F11.90 Opioid use, unspecified, uncomplicated; F15.90 Other stimulant use, unspecified, uncomplicated
CPT/HCPCS: 36415; 70450; 80048; 80053; 80305; 81001; 82550; 83735; 85025; 85027; 99285-25; A9270-GY; J1630; J2060; J2270; J3480; J7030; J7040

== ENCOUNTER 2017-09-25 17:33 | Emergency (ER) | payer SELFPAY ==
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
[2017-09-25] MEDS ORDERED: Sodium Chloride 0.9% 100 ML IV SCH (18:30)
[2017-09-25] MEDS ORDERED: Iopamidol 612 MG/ML 100 ML Bottle IV SCH (18:30)
[2017-09-25] MEDS ORDERED: Lidocaine 1% with EPINEPHrine 1:100,000 50 ML MDV SUBCUT STA (18:55)
[2017-09-25] MEDS ORDERED: Bacitracin Oint 1 GM U/D Packet TOP ONE (18:55)
[2017-09-25] MEDS ORDERED: Lactated Ringers 1,000 ML IV ONE (19:01)
[2017-09-25] MEDS ORDERED: Ketorolac 30 MG/ML SDV IVPUSH ONE (19:29)
[2017-09-25 19:40] VITALS: BP 167/88
[2017-09-25] MEDS ORDERED: HYDROmorphone 1 MG/ML Syringe IVPUSH ONE (19:45)
[2017-09-25] MEDS ORDERED: HYDROmorphone 1 MG/ML Syringe ONE (19:47)
== END 2017-09-25 20:50 | disposition home or self-care (01) ==
LOC: JP.ED 17:33
DX: S01.81XA Laceration without foreign body of other part of head, initial encounter (principal); I10 Essential (primary) hypertension; F19.10 Other psychoactive substance abuse, uncomplicated; Z79.899 Other long term (current) drug therapy; V89.2XXA Person injured in unspecified motor-vehicle accident, traffic, initial encounter
CPT/HCPCS: 12011; 36415; 70450; 70486; 71260; 72125; 80053; 80305; 81001; 85025; 96361; 96374; 96375; 99284; G0480; J1170; J1885; J7030; J7120; Q9967

== ENCOUNTER 2017-10-03 09:29 | Emergency (ER) | payer SELFPAY ==
[2017-10-03] MEDS ORDERED: Naloxone 0.4 MG/ML SDV IVPUSH ONE ×2 (09:38→10:51)
[2017-10-03] MEDS ORDERED: Ondansetron 4 MG/2 ML SDV ONE (09:41)
[2017-10-03] MEDS ORDERED: Naloxone 0.4 MG/ML SDV ONE (09:50)
[2017-10-03] MEDS: Sodium Chloride 0.9% 1,000 ML IV SCH ×2 (10:14→11:01)
[2017-10-03] MEDS ORDERED: Potassium Chloride 20 MEQ in Premix Bag 1 BAG IV ONE (10:32)
[2017-10-03] MEDS ORDERED: Sodium Chloride 0.9% 1,000 ML IV SCH (10:45)
[2017-10-03] MEDS ORDERED: Potassium Chloride 20 MEQ, Lidocaine 1% 2 ML in Sodium Chloride 0.9% 100 ML IV ONE (11:00)
--- NOTE | 2017-10-03 11:08 | CT ---
Head wo Cont HISTORY: Altered level of consciousness. COMPARISON: 7 days prior TECHNIQUE: Noncontrast enhanced axial cuts were obtained of the brain. FINDINGS:There is no cerebral or subdural hemorrhage. There is no mass effect or edema. The ventricle s and CSF spaces are appropriate for age. No space occupying lesions are demonstrated. The orbital st ructures are unremarkable. The sinuses demonstrate normal aeration. IMPRESSION: Negative exam.
[2017-10-03] MEDS ORDERED: Midazolam 1 MG/ML 5 ML SDV IVPUSH ONE ×2 (11:14→12:15)
[2017-10-03] MEDS ORDERED: Piperacillin/Tazobactam 3.375 GM in Sodium Chloride 0.9% 50 ML IV SCH (11:15)
[2017-10-03] MEDS ORDERED: Midazolam 1 MG/ML 5 ML SDV ONE (11:15)
--- NOTE | 2017-10-03 11:22 | CR ---
Portable chest Comparison: June 2016. There has been interval development of bilateral interstitial infiltrates. There are no effusions. Th ere is mild vascular engorgement. The heart is normal in size. Stimulating electrodes are present ove rlying the thoracic spine. Impression: 1. Bilateral interstitial infiltrates. Recommend correlation for possible aspiration.
--- NOTE | 2017-10-03 11:27 | EDM.PDOC ---
ED HPI GENERAL MEDICAL PROBLEM - General Chief Complaint: Drug or Alcohol Abuse Stated Complaint: MEDICAL VIA [facility] Time Seen by Provider: 10/03/17 09:45 Source of Information: Reports: Patient History Limitations: Reports: No Limitations - History of Present Illness INITIAL COMMENTS - FREE TEXT/NARRATIVE: Pt arrived with a history of being found down and unresponsive. She was cool and no one knew how long she had been down. She has a history of overtaking her meds. She smelled like she had vomited. Onset: Today Duration: Hour(s):, Other (pt was found down and we assumed that she took too many meds. ) Location: Reports: Head, Chest, Other (pt is very sedated. ) Severity: Moderate Associated Symptoms: Reports: Other (pt has a tremendous amount of secretions. These looked yellow and infections. ) - Related Data Allergies Allergy/AdvReac Type Severity Reaction Status Date / Time No Known Allergies Allergy Verified 09/25/17 17:38 Home Meds: Home Meds Zolpidem [Ambien] 10 mg PO BEDTIME 11/15/13 [History] Cyclobenzaprine [Flexeril] 10 mg PO TID 06/02/14 [History] Gabapentin 800 mg PO TID 06/02/14 [History] Multiple Vitamin 1 tab PO DAILY 11/26/14 [History] DULoxetine HCl [Cymbalta] 60 mg PO BID 01/25/16 [History] Metoprolol Succinate [Toprol XL] 50 mg PO BID 04/12/16 [History] amLODIPine Besylate [Amlodipine Besylate] 10 mg PO DAILY 06/20/16 [History] Gabapentin [Neurontin] 400 mg PO ASDIRECTED 06/24/17 [History] Hydrocodone/Acetaminophen [Tangent 7.5-325 Tablet] 1 tab PO BID PRN 06/24/17 [ History] Ibuprofen 600 mg PO Q6H PRN 06/24/17 [History] Lisinopril 40 mg PO DAILY 06/24/17 [History] Morphine Sulfate [Morphine Sulfate ER] 1 tab PO BID 06/24/17 [History] traMADol [Ultram] 50 mg PO BID PRN 06/24/17 [History] traZODone 150 mg PO BEDTIME 06/24/17 [History] Zolpidem Tartrate [Zolpidem Tartrate] 1 tab PO BEDTIME PRN 09/25/17 [History] Past Medical History Cardiovascular History: Reports: Hypertension Respiratory History: Reports: Other (See Below) Other Respiratory History: hx asp. pneumonia Gastrointestinal History: Reports: Other (See Below) Other Gastrointestinal History: esophageal reflux gastroenteritis and colitis Genitourinary History: Reports: Other (See Below) Other Genitourinary History: acute kidney injury - unknown info [employer] History: Reports: Musculoskeletal History: Reports: Other (See Below) Other Musculoskeletal History: back pain herniated lumbar intervertebral disc Neurological History: Reports: CVA, Other (See Below) Other Neuro History: cerebral hemmorhage- unknown. chronic back pain. reflex sympathetic dystrophy. restless legs Psychiatric History: Reports: Addiction, Depression, Other (See Below) Other Psychiatric History: overdose unknown --polysubstance abuse - Infectious Disease History Infectious Disease History: Reports: Other (See Below) Other Infectious Disease History: unable to obtain - Past Surgical History Cardiovascular Surgical History: Reports: None GI Surgical History: Reports: Cholecystectomy Neurological Surgical History: Reports: Discectomy, Lumbar Spine Musculoskeletal Surgical History: Reports: Other (See Below) Other Musculoskeletal Surgeries/Procedures:: fx left ulna unknown Social & Family History - Family History Family Medical History: Noncontributory - Tobacco Use Smoking Status *Q: Never Smoker Years of Tobacco use: 30 Packs/Tins Daily: 1 Used Tobacco, but Quit: Yes Month Tobacco Last Used: 08/15/11 Second Hand Smoke Exposure: No - Caffeine Use Caffeine Use: Reports: Other Other Caffeine Use: unknown Caffeine Use Comment: unknown - Alcohol Use Days Per Week of Alcohol Use: 0 - Recreational Drug Use Recreational Drug Use: No Recreational Drug Type: Reports: Other (see below) Other Recreational Drug Type: unable to obtain ED ROS GENERAL - Review of Systems Review Of Systems: See Below Constitutional: Reports: No Symptoms HEENT: Reports: Other (pt is not responsive) Respiratory: Reports: Other ( breathing rapidly) Cardiovascular: Reports: No Symptoms Endocrine: Reports: No Symptoms GI/Abdominal: Reports: No Symptoms : Reports: No Symptoms Skin: Reports: No Symptoms - Physical Exam Exam: See Below Text/Narrative:: pt arrived very sedated. She was given .8 of narcan and she did respond to that. She was more awake.Once again she became very sedated and she had alot of secretions coming from the mouth. Exam Limited By: No Limitations General Appearance: Alert, Anxious, Other (pupils equal and reactive. ) Ears: Normal TMs Nose: Normal Inspection Throat/Mouth: Normal Inspection Head Exam: Other (pt has bruises around her eyes. ) Neck: Normal Inspection Respiratory/Chest: No Respiratory Distress GI/Abdominal: Soft, Non-Tender (Female) Exam: Deferred Rectal (Female) Exam: Deferred Neuro Exam (Abbreviated): Other (pt did become more alert after the narcan. She then became very sedated. ) Back Exam: Normal Inspection Extremities: Normal Inspection Psychiatric: Other (pt is not responding. ) Course - Vital Signs Last Recorded V/S: Last Vital Signs Temp 36.5 C 10/03/17 09:42 Pulse 99 10/03/17 11:50 Resp 10 L 10/03/17 11:50 BP 109/68 10/03/17 11:50 Pulse Ox 100 10/03/17 11:50 - Orders/Labs/Meds Orders: Active Orders 24 hr Category Date Time Status CULTURE BLOOD [BC] Urgent Lab 10/03/17 11:24 Results CULTURE RESPIRATORY + SMEAR [RM] Stat Lab 10/03/17 11:33 Results Blood Culture x2 Reflex Set [OM.PC] Urgent Oth 10/03/17 11:08 Ordered Restraint Monitoring Non-VIOL/Non-SD [OM.PC] Daily Oth 10/03/17 11:45 Ordered Labs: Laboratory Tests 10/03/17 10/03/17 10/03/17 Range/Units 09:40 09:51 09:51 WBC 13.8 H (4.5-11.0) K/uL RBC 4.72 (3.30-5.50) M/uL Hgb 13.2 (12.0-15.0) g/dL Hct 40.2 (36.0-48.0) % MCV 85 (80-98) fL MCH 28 (27-31) pg MCHC 33 (32-36) % Plt Count 588 H (150-400) K/uL Neut % (Auto) 82 H (36-66) % Lymph % (Auto) 12 L (24-44) % [place] % (Auto) 6 (2-6) % Eos % (Auto) 0 L (2-4) % Baso % (Auto) 1 (0-1) % Puncture Site Rt radial ABG pH 7.543 H (7.350-7.450) ABG pCO2 30.8 L (35.0-42.0) mmHg ABG pO2 156.0 H (75.0-100.0) mmHg ABG HCO3 26.4 H (22.0-26.0) mmol/L ABG Total CO2 23.0 (21.0-25.0) mmol/L ABG O2 Saturation 98.5 H (95.0-98.0) % ABG O2 Content 17.3 (15.0-23.0) %vol ABG Base Excess 4.6 mm/L ABG Hemoglobin 12.7 (12.0-16.0) g/dL ABG Oxyhemoglobin 95.4 % ABG Carboxyhemoglobin 1.7 H (0.0-1.6) % ABG Methemoglobin 1.4 % Grey Test Performed O2 Delivery Device Nasal cannula Sodium 140 (140-148) mmol/L Potassium 2.8 L* (3.6-5.2) mmol/L Chloride 101 (100-108) mmol/L Carbon Dioxide 27 (21-32) mmol/L Anion Gap 14.8 H (5.0-14.0) mmol/L BUN 11 (7-18) mg/dL Creatinine 2.2 H D (0.6-1.0) mg/dL Est Cr Clr Drug Dosing 25.69 mL/min Estimated GFR (MDRD) 23 L (>60) Glucose 145 H (74-106) mg/dL Lactic Acid (0.4-2.0) mmol/L Calcium 9.0 (8.5-10.1) mg/dL Total Bilirubin 0.3 (0.2-1.0) mg/dL AST 38 H (15-37) U/L ALT 30 (12-78) U/L Alkaline Phosphatase 161 H (46-116) U/L Creatine Kinase (26-192) U/L Total Protein 7.0 (6.4-8.2) g/dL Albumin 2.4 L (3.4-5.0) g/dL Globulin 4.6 H (2.3-3.5) g/dL Albumin/Globulin Ratio 0.5 L (1.2-2.2) Urine Color Urine Appearance Urine pH (4.5-8.0) Ur Specific [place] (1.008-1.030) Urine Protein (NEGATIVE) mg/dL Urine Glucose (UA) (NEGATIVE) mg/dL Urine Ketones (NEGATIVE) mg/dL Urine Occult Blood (NEGATIVE) Urine Nitrite (NEGATIVE) Urine Bilirubin (NEGATIVE) Urine Urobilinogen (NORMAL) mg/dL Ur Leukocyte Esterase (NEGATIVE) Urine RBC (0-5) Urine WBC (0-5) Ur Epithelial Cells Amorphous Sediment Urine Bacteria Urine Mucus Urine Opiates Screen (NEGATIVE) Ur Oxycodone Screen (NEGATIVE) Urine Methadone Screen (NEGATIVE) Ur Propoxyphene Screen (NEGATIVE) Ur Barbiturates Screen (NEGATIVE) Ur Tricyclics Screen (NEGATIVE) Ur Phencyclidine Scrn (NEGATIVE) Ur Amphetamine Screen (NEGATIVE) U Methamphetamines Scrn (NEGATIVE) Urine MDMA Screen (NEGATIVE) U Benzodiazepines Scrn (NEGATIVE) U Cocaine Metab Screen (NEGATIVE) U Marijuana (THC) Screen (NEGATIVE) Ethyl Alcohol mg/dL 10/03/17 10/03/17 10/03/17 Range/Units 09:51 10:31 10:32 WBC (4.5-11.0) K/uL RBC (3.30-5.50) M/uL Hgb (12.0-15.0) g/dL Hct (36.0-48.0) % MCV (80-98) fL MCH (27-31) pg MCHC (32-36) % Plt Count (150-400) K/uL Neut % (Auto) (36-66) % Lymph % (Auto) (24-44) % [place] % (Auto) (2-6) % Eos % (Auto) (2-4) % Baso % (Auto) (0-1) % Puncture Site ABG pH (7.350-7.450) ABG pCO2 (35.0-42.0) mmHg ABG pO2 (75.0-100.0) mmHg ABG HCO3 (22.0-26.0) mmol/L ABG Total CO2 (21.0-25.0) mmol/L ABG O2 Saturation (95.0-98.0) % ABG O2 Content (15.0-23.0) %vol ABG Base Excess mm/L ABG Hemoglobin (12.0-16.0) g/dL ABG Oxyhemoglobin % ABG Carboxyhemoglobin (0.0-1.6) % ABG Methemoglobin % Grey Test O2 Delivery Device Sodium (140-148) mmol/L Potassium (3.6-5.2) mmol/L Chloride (100-108) mmol/L Carbon Dioxide (21-32) mmol/L Anion Gap (5.0-14.0) mmol/L BUN (7-18) mg/dL Creatinine (0.6-1.0) mg/dL Est Cr Clr Drug Dosing mL/min Estimated GFR (MDRD) (>60) Glucose (74-106) mg/dL Lactic Acid (0.4-2.0) mmol/L Calcium (8.5-10.1) mg/dL Total Bilirubin (0.2-1.0) mg/dL AST (15-37) U/L ALT (12-78) U/L Alkaline Phosphatase (46-116) U/L Creatine Kinase (26-192) U/L Total Protein (6.4-8.2) g/dL Albumin (3.4-5.0) g/dL Globulin (2.3-3.5) g/dL Albumin/Globulin Ratio (1.2-2.2) Urine Color Yellow Urine Appearance Slightly cloudy Urine pH 6.5 (4.5-8.0) Ur Specific [place] 1.010 (1.008-1.030) Urine Protein Trace (NEGATIVE) mg/dL Urine Glucose (UA) Normal (NEGATIVE) mg/dL Urine Ketones 15 H (NEGATIVE) mg/dL Urine Occult Blood Negative (NEGATIVE) Urine Nitrite Negative (NEGATIVE) Urine Bilirubin Negative (NEGATIVE) Urine Urobilinogen 4 (NORMAL) mg/dL Ur Leukocyte Esterase Negative (NEGATIVE) Urine RBC Not seen (0-5) Urine WBC 0-5 (0-5) Ur Epithelial Cells Not seen Amorphous Sediment Not seen Urine Bacteria Not seen Urine Mucus Not seen Urine Opiates Screen Negative (NEGATIVE) Ur Oxycodone Screen Positive H (NEGATIVE) Urine Methadone Screen Negative (NEGATIVE) Ur Propoxyphene Screen Negative (NEGATIVE) Ur Barbiturates Screen Negative (NEGATIVE) Ur Tricyclics Screen Positive H (NEGATIVE) Ur Phencyclidine Scrn Negative (NEGATIVE) Ur Amphetamine Screen Negative (NEGATIVE) U Methamphetamines Scrn Negative (NEGATIVE) Urine MDMA Screen Negative (NEGATIVE) U Benzodiazepines Scrn Negative (NEGATIVE) U Cocaine Metab Screen Negative (NEGATIVE) U Marijuana (THC) Screen Negative (NEGATIVE) Ethyl Alcohol < 3 mg/dL 10/03/17 10/03/17 Range/Units 11:19 11:41 WBC (4.5-11.0) K/uL RBC (3.30-5.50) M/uL Hgb (12.0-15.0) g/dL Hct (36.0-48.0) % MCV (80-98) fL MCH (27-31) pg MCHC (32-36) % Plt Count (150-400) K/uL Neut % (Auto) (36-66) % Lymph % (Auto) (24-44) % [place] % (Auto) (2-6) % Eos % (Auto) (2-4) % Baso % (Auto) (0-1) % Puncture Site ABG pH (7.350-7.450) ABG pCO2 (35.0-42.0) mmHg ABG pO2 (75.0-100.0) mmHg ABG HCO3 (22.0-26.0) mmol/L ABG Total CO2 (21.0-25.0) mmol/L ABG O2 Saturation (95.0-98.0) % ABG O2 Content (15.0-23.0) %vol ABG Base Excess mm/L ABG Hemoglobin (12.0-16.0) g/dL ABG Oxyhemoglobin % ABG Carboxyhemoglobin (0.0-1.6) % ABG Methemoglobin % Grey Test O2 Delivery Device Sodium (140-148) mmol/L Potassium (3.6-5.2) mmol/L Chloride (100-108) mmol/L Carbon Dioxide (21-32) mmol/L Anion Gap (5.0-14.0) mmol/L BUN (7-18) mg/dL Creatinine (0.6-1.0) mg/dL Est Cr Clr Drug Dosing mL/min Estimated GFR (MDRD) (>60) Glucose (74-106) mg/dL Lactic Acid 1.0 (0.4-2.0) mmol/L Calcium (8.5-10.1) mg/dL Total Bilirubin (0.2-1.0) mg/dL AST (15-37) U/L ALT (12-78) U/L Alkaline Phosphatase (46-116) U/L Creatine Kinase 182 (26-192) U/L Total Protein (6.4-8.2) g/dL Albumin (3.4-5.0) g/dL Globulin (2.3-3.5) g/dL Albumin/Globulin Ratio (1.2-2.2) Urine Color Urine Appearance Urine pH (4.5-8.0) Ur Specific [place] (1.008-1.030) Urine Protein (NEGATIVE) mg/dL Urine Glucose (UA) (NEGATIVE) mg/dL Urine Ketones (NEGATIVE) mg/dL Urine Occult Blood (NEGATIVE) Urine Nitrite (NEGATIVE) Urine Bilirubin (NEGATIVE) Urine Urobilinogen (NORMAL) mg/dL Ur Leukocyte Esterase (NEGATIVE) Urine RBC (0-5) Urine WBC (0-5) Ur Epithelial Cells Amorphous Sediment Urine Bacteria Urine Mucus Urine Opiates Screen (NEGATIVE) Ur Oxycodone Screen (NEGATIVE) Urine Methadone Screen (NEGATIVE) Ur Propoxyphene Screen (NEGATIVE) Ur Barbiturates Screen (NEGATIVE) Ur Tricyclics Screen (NEGATIVE) Ur Phencyclidine Scrn (NEGATIVE) Ur Amphetamine Screen (NEGATIVE) U Methamphetamines Scrn (NEGATIVE) Urine MDMA Screen (NEGATIVE) U Benzodiazepines Scrn (NEGATIVE) U Cocaine Metab Screen (NEGATIVE) U Marijuana (THC) Screen (NEGATIVE) Ethyl Alcohol mg/dL Meds: Medications Discontinued Medications Generic Name Dose Route Start Last Admin Trade Name Freq PRN Reason Stop Dose Admin Sodium Chloride 1,000 mls @ 999 mls/hr 10/03/17 09:45 10/03/17 11:01 Normal Saline IV 999 mls/hr ASDIRECTED AKIN Administration Sodium Chloride 1,000 mls @ 999 mls/hr 10/03/17 10:45 10/03/17 09:45 Normal Saline IV 999 mls/hr ASDIRECTED AKIN Administration Potassium Chloride 20 meq/ 112 mls @ 56 mls/hr 10/03/17 11:00 10/03/17 11:20 Lidocaine HCl 2 ml/ Sodium IV 10/03/17 12:59 56 mls/hr Chloride ONETIME ONE Administration Piperacillin/Tazobactam/ 50 mls @ 100 mls/hr 10/03/17 12:00 10/03/17 12:00 Dextrose 3.375 gm/ Premix IV 100 mls/hr Q6H AKIN Administration Midazolam HCl 5 mg 10/03/17 11:14 10/03/17 11:23 Versed 1 Mg/Ml IVPUSH 10/03/17 11:15 5 mg ONETIME ONE Administration Midazolam HCl Confirm 10/03/17 11:15 Versed 1 Mg/Ml Administered 10/03/17 11:16 Dose 5 mg .ROUTE .STK-MED ONE Midazolam HCl 5 mg 10/03/17 12:15 10/03/17 12:20 Versed 1 Mg/Ml IVPUSH 10/03/17 12:16 5 mg ONETIME ONE Administration Naloxone HCl 0.4 mg 10/03/17 09:38 10/03/17 09:40 Narcan IVPUSH 10/03/17 09:39 0.4 mg ONETIME ONE Administration Naloxone HCl Confirm 10/03/17 09:50 Narcan Administered 10/03/17 09:51 Dose 0.4 mg .ROUTE .STK-MED ONE Naloxone HCl 0.4 mg 10/03/17 10:51 10/03/17 09:45 Narcan IVPUSH 10/03/17 10:52 0.4 mg ONETIME ONE Administration Ondansetron HCl Confirm 10/03/17 09:41 Zofran Administered 10/03/17 09:42 Dose 4 mg .ROUTE .STK-MED ONE Ondansetron HCl 4 mg 10/03/17 11:45 10/03/17 09:45 Zofran IVPUSH 10/03/17 11:46 4 mg ONETIME ONE Administration - Re-Assessments/Exams Free Text/Narrative Re-Assessment/Exam: 10/03/17 11:37 pt was given a total of ,1.2 of narcan. She did respond to that and then became very sedated. . She had alot of secretions. She was intubated because of all the secretions and her level of consciousness. a huge amount of secretions were suctioned at the time of intubation, There was concern that the pt had asperated when she was unresponsive at home. Because of the asperation she was given zosyn before she left the er. She was fighting the tube o she was given 2 doses of versed to relax her. 10/04/17 11:31 Departure - Departure Time of Disposition: 11:38 Disposition: DC/Tfer to [facility] 02 Condition: Fair Clinical Impression: Overdose, Endotracheally intubated - Discharge Information Referrals: PCP,None [Primary Care Provider] - Forms: ED Department Discharge Care Plan Goals: transfer to [facility]. Critical Care Note - Critical Care Note Total Time (mins): 60 Comments: Pt arrived somewhat unresponsive. She was given 2 doses of narcan and she did wake up some. She then became unresponsive again and she sounded like she had alot of secretions. She was intubated and a huge amount of secretions was suctioned. This did look purulent. She most likely asprated when she was so sleepy. She was started on zosyn. transfer to [facility] was accomplished - My Orders Last 24 Hours: My Active Orders 10/03/17 11:08 Blood Culture x2 Reflex Set [OM.PC] Urgent 10/03/17 11:24 CULTURE BLOOD [BC] Urgent 10/03/17 11:33 CULTURE RESPIRATORY + SMEAR [RM] Stat 10/03/17 11:45 Restraint Monitoring Non-VIOL/Non-SD [OM.PC] Daily - Assessment/Plan Last 24 Hours: My Active Orders 10/03/17 11:08 Blood Culture x2 Reflex Set [OM.PC] Urgent 10/03/17 11:24 CULTURE BLOOD [BC] Urgent 10/03/17 11:33 CULTURE RESPIRATORY + SMEAR [RM] Stat 10/03/17 11:45 Restraint Monitoring Non-VIOL/Non-SD [OM.PC] Daily
[2017-10-03] MEDS ORDERED: Ondansetron 4 MG/2 ML SDV IVPUSH ONE (11:45)
[2017-10-03 11:59] VITALS: BP 109/68
[2017-10-03] MEDS ORDERED: Piperacillin/Tazobactam/Dext 3.375 GM in Premix Bag 1 BAG IV SCH (12:00)
--- NOTE | 2017-10-03 20:38 | ANES ---
DATE OF SERVICE: 10/03/2017 TIME: 11 o'clock. I was called to the emergency room by Dr. Gonzáles to evaluate Ms. Garrett for an intubation. She is very sedated and having some respiratory depression and wound aspiration concerns. I did give her 150 mg of propofol and I intubated her with a 7.5 endotracheal tube with a 3 MAC. Very good visualization was noted and the tube was secured by the respiratory therapy staff. There was positive end-tidal CO2 and respiratory sounds were good. I then put a 14- Divehi NG into the right naris into the stomach and was hooked to suction. Ifeanyi Lanza CRNA /[id number]
== END 2017-10-03 12:48 ==
LOC: JP.ED 09:29
DX: T65.91XA Toxic effect of unspecified substance, accidental (unintentional), initial encounter (principal); I10 Essential (primary) hypertension; Z79.82 Long term (current) use of aspirin; Z87.891 Personal history of nicotine dependence
CPT/HCPCS: 31500; 36415; 36600; 70450; 71045; 80053; 80305; 81001; 82550; 82803; 82962; 83605; 85025; 87040; 87070; 87205; 93005; 96361; 96365; 96375; 96376; 99285; G0480; J2250; J2310; J2405; J2543; J3480; J7030; J7040; 87184; 99291

== ENCOUNTER 2017-11-22 21:03 | Emergency (ER) | payer SELFPAY ==
[2017-11-22] MEDS ORDERED: LORazepam 2 MG/ML SDV IVPUSH ONE (21:23)
--- NOTE | 2017-11-22 21:32 | EDM.PDOCBH ---
ED HPI GENERAL MEDICAL PROBLEM - General Chief Complaint: Drug or Alcohol Abuse Stated Complaint: MEDICAL VIA NORTH Time Seen by Provider: 11/22/17 21:23 Source of Information: Reports: Police, RN Notes Reviewed History Limitations: Reports: Intoxication - History of Present Illness INITIAL COMMENTS - FREE TEXT/NARRATIVE: 57-year-old female presents to the emergency department day with law enforcement following welfare check, this officer checked on this individual 2 days in a row she has been severely intoxicated home found with a new bruise on her forehead covered in fecal material half naked uncooperative with the officer and emergency room staff. No review of systems is obtained due to the level of intoxication Lower Back Pain Score (Numeric/FACES): 6 - Related Data Allergies Allergy/AdvReac Type Severity Reaction Status Date / Time No Known Allergies Allergy Verified 11/22/17 21:57 Home Meds: Home Meds Zolpidem [Ambien] 10 mg PO BEDTIME 11/15/13 [History] Cyclobenzaprine [Flexeril] 10 mg PO TID PRN 06/02/14 [History] Multiple Vitamin 1 tab PO DAILY 11/26/14 [History] DULoxetine HCl [Cymbalta] 60 mg PO BID 01/25/16 [History] amLODIPine Besylate [Amlodipine Besylate] 10 mg PO DAILY 06/20/16 [History] Gabapentin [Neurontin] 400 mg PO ASDIRECTED 06/24/17 [History] Hydrocodone/Acetaminophen [[place] 7.5-325 Tablet] 1 tab PO BID PRN 06/24/17 [ History] Ibuprofen 600 mg PO Q6H PRN 06/24/17 [History] Lisinopril 40 mg PO DAILY 06/24/17 [History] Morphine Sulfate [Morphine Sulfate ER] 30 mg PO BID 06/24/17 [History] traMADol [Ultram] 50 mg PO BID PRN 06/24/17 [History] Zolpidem Tartrate 1 tab PO BEDTIME PRN 09/25/17 [History] Metoprolol Tartrate 50 mg PO DAILY 11/23/17 [History] Past Medical History Cardiovascular History: Reports: Hypertension Respiratory History: Reports: Other (See Below) Other Respiratory History: hx asp. pneumonia Gastrointestinal History: Reports: Other (See Below) Other Gastrointestinal History: esophageal reflux gastroenteritis and colitis Genitourinary History: Reports: Other (See Below) Other Genitourinary History: acute kidney injury - unknown info [employer] History: Reports: Musculoskeletal History: Reports: Other (See Below) Other Musculoskeletal History: back pain herniated lumbar intervertebral disc Neurological History: Reports: CVA, Other (See Below) Other Neuro History: cerebral hemmorhage- unknown. chronic back pain. reflex sympathetic dystrophy. restless legs Psychiatric History: Reports: Addiction, Depression, Other (See Below) Other Psychiatric History: overdose unknown --polysubstance abuse - Infectious Disease History Infectious Disease History: Reports: Other (See Below) Other Infectious Disease History: unable to obtain - Past Surgical History Cardiovascular Surgical History: Reports: None GI Surgical History: Reports: Cholecystectomy Neurological Surgical History: Reports: Discectomy, Lumbar Spine Musculoskeletal Surgical History: Reports: Other (See Below) Other Musculoskeletal Surgeries/Procedures:: fx left ulna unknown Social & Family History - Family History Family Medical History: Noncontributory - Tobacco Use Smoking Status *Q: Never Smoker Years of Tobacco use: 30 Packs/Tins Daily: 1 Used Tobacco, but Quit: Yes Month/Year Tobacco Last Used: 08/15/11 Second Hand Smoke Exposure: No - Caffeine Use Caffeine Use: Reports: Other Other Caffeine Use: unknown Caffeine Use Comment: unknown - Alcohol Use Days Per Week of Alcohol Use: 0 - Recreational Drug Use Recreational Drug Use: No Recreational Drug Type: Reports: Other (see below) Other Recreational Drug Type: unable to obtain ED ROS GENERAL - Review of Systems Review Of Systems: Unable To Obtain ED EXAM, BEHAVIORAL HEALTH - Physical Exam Exam: See Below Text/Narrative:: General: Intoxicated female communicates in single words but does follow commands GCS of 14, alert HEENT: head is large bruise with hematoma appreciated frontal scalp normocephalic, eyes pupils equal round reactive to light, sclera clear no conjunctivitis appreciated extraocular eye movements intact. Ears tympanic membranes clear and wagner landmarks and light reflex are present bilaterally canals are clear. Nose no septal deviation, nares are clear , no blood present. Mouth mucosa is moist and pink no erythema or exudate noted in soft palate, tongue is midline uvula is midline, dentition is poor. Neck: Supple no thyromegaly no tracheal deviation. Nodes: Cervical nodes subclavicular nodes nontender no palpable lymphadenopathy noted. Lungs: clear to auscultation bilaterally with symmetrical respirations, no adventitious noise appreciated. CV: Regular rate and rhythm S1 and S2 appreciated no murmurs rubs or gallops noted. Abdomen: Soft, nontender, no palpable masses or organomegaly appreciated, no distention no guarding bowel sounds are present, . Neuro: Cranial nerves II through XII grossly intact Skin: Warm and dry, intact Extremities: No lower extremity edema appreciated, pedal pulse is +2. COURSE, BEHAVIORAL HEALTH COMP - Course Vital Signs: Last Vital Signs Temp 96.8 F 11/23/17 00:05 Pulse 89 11/23/17 02:11 Resp 16 11/23/17 02:11 BP 162/88 H 11/23/17 02:11 Pulse Ox 98 11/23/17 02:11 Orders, Labs, Meds: Active Orders 24 hr Category Date Time Status Cervical Spine wo Cont [CT] Stat Exams 11/22/17 21:29 Taken Head wo Cont [CT] Stat Exams 11/22/17 21:29 Taken Max Facial Sinus wo Cont [CT] Stat Exams 11/22/17 23:20 Taken DRUG SCREEN, URINE [URCHEM] Urgent Lab 11/22/17 21:53 Ordered UA W/MICROSCOPIC [URIN] Urgent Lab 11/22/17 21:53 Ordered Lactated Ringers [Ringers, Lactated] 1,000 ml Med 11/23/17 00:30 Active IV BOLUS Restraint Initiate Non-VIOL/Non-SD [OM.PC] Stat Oth 11/22/17 21:26 Ordered Medication Orders Lactated Ringer's (Ringers, Lactated) 1,000 mls @ 125 mls/hr IV BOLUS ONE Stop: 11/23/17 08:29 Last Admin: 11/23/17 00:33 Dose: 125 mls/hr Laboratory Tests 11/22/17 11/22/17 11/22/17 Range/Units 21:37 21:37 21:37 WBC 9.6 (4.5-11.0) K/uL RBC 4.47 (3.30-5.50) M/uL Hgb 12.0 (12.0-15.0) g/dL Hct 37.1 (36.0-48.0) % MCV 83 (80-98) fL MCH 27 (27-31) pg MCHC 32 (32-36) % Plt Count 486 H (150-400) K/uL Neut % (Auto) 64 (36-66) % Lymph % (Auto) 27 (24-44) % [place] % (Auto) 8 H (2-6) % Eos % (Auto) 1 L (2-4) % Baso % (Auto) 1 (0-1) % Sodium 139 L (140-148) mmol/L Potassium 2.1 L* (3.6-5.2) mmol/L Chloride 104 (100-108) mmol/L Carbon Dioxide 16 L (21-32) mmol/L Anion Gap 21.1 H (5.0-14.0) mmol/L BUN 7 (7-18) mg/dL Creatinine 0.7 D (0.6-1.0) mg/dL Est Cr Clr Drug Dosing 87.27 mL/min Estimated GFR (MDRD) > 60 (>60) Glucose 132 H (74-106) mg/dL Calcium 7.5 L D (8.5-10.1) mg/dL Total Bilirubin 0.2 (0.2-1.0) mg/dL AST 33 (15-37) U/L ALT 21 (12-78) U/L Alkaline Phosphatase 160 H (46-116) U/L Ammonia 27 (11-32) mmol/L Total Protein 7.0 (6.4-8.2) g/dL Albumin 3.1 L (3.4-5.0) g/dL Globulin 3.9 H (2.3-3.5) g/dL Albumin/Globulin Ratio 0.8 L (1.2-2.2) Urine Color Urine Appearance Urine pH (4.5-8.0) Ur Specific [place] (1.008-1.030) Urine Protein (NEGATIVE) mg/dL Urine Glucose (UA) (NEGATIVE) mg/dL Urine Ketones (NEGATIVE) mg/dL Urine Occult Blood (NEGATIVE) Urine Nitrite (NEGATIVE) Urine Bilirubin (NEGATIVE) Urine Urobilinogen (NORMAL) mg/dL Ur Leukocyte Esterase (NEGATIVE) Urine RBC (0-5) Urine WBC (0-5) Ur Epithelial Cells Amorphous Sediment Urine Bacteria Urine Mucus Salicylates (2.0-20.0) mg/dL Urine Opiates Screen (NEGATIVE) Ur Oxycodone Screen (NEGATIVE) Urine Methadone Screen (NEGATIVE) Ur Propoxyphene Screen (NEGATIVE) Acetaminophen 0.0 L (10.0-30.0) ug/mL Ur Barbiturates Screen (NEGATIVE) Ur Tricyclics Screen (NEGATIVE) Ur Phencyclidine Scrn (NEGATIVE) Ur Amphetamine Screen (NEGATIVE) U Methamphetamines Scrn (NEGATIVE) Urine MDMA Screen (NEGATIVE) U Benzodiazepines Scrn (NEGATIVE) U Cocaine Metab Screen (NEGATIVE) U Marijuana (THC) Screen (NEGATIVE) Ethyl Alcohol mg/dL 11/22/17 11/22/17 11/22/17 Range/Units 21:37 21:37 21:53 WBC (4.5-11.0) K/uL RBC (3.30-5.50) M/uL Hgb (12.0-15.0) g/dL Hct (36.0-48.0) % MCV (80-98) fL MCH (27-31) pg MCHC (32-36) % Plt Count (150-400) K/uL Neut % (Auto) (36-66) % Lymph % (Auto) (24-44) % [place] % (Auto) (2-6) % Eos % (Auto) (2-4) % Baso % (Auto) (0-1) % Sodium (140-148) mmol/L Potassium (3.6-5.2) mmol/L Chloride (100-108) mmol/L Carbon Dioxide (21-32) mmol/L Anion Gap (5.0-14.0) mmol/L BUN (7-18) mg/dL Creatinine (0.6-1.0) mg/dL Est Cr Clr Drug Dosing mL/min Estimated GFR (MDRD) (>60) Glucose (74-106) mg/dL Calcium (8.5-10.1) mg/dL Total Bilirubin (0.2-1.0) mg/dL AST (15-37) U/L ALT (12-78) U/L Alkaline Phosphatase (46-116) U/L Ammonia (11-32) mmol/L Total Protein (6.4-8.2) g/dL Albumin (3.4-5.0) g/dL Globulin (2.3-3.5) g/dL Albumin/Globulin Ratio (1.2-2.2) Urine Color Yellow Urine Appearance Clear Urine pH 6.0 (4.5-8.0) Ur Specific [place] 1.020 (1.008-1.030) Urine Protein Negative (NEGATIVE) mg/dL Urine Glucose (UA) Normal (NEGATIVE) mg/dL Urine Ketones Negative (NEGATIVE) mg/dL Urine Occult Blood Moderate (NEGATIVE) Urine Nitrite Negative (NEGATIVE) Urine Bilirubin Negative (NEGATIVE) Urine Urobilinogen Normal (NORMAL) mg/dL Ur Leukocyte Esterase Negative (NEGATIVE) Urine RBC 5-10 H (0-5) Urine WBC 0-5 (0-5) Ur Epithelial Cells Rare Amorphous Sediment Not seen Urine Bacteria Few Urine Mucus Not seen Salicylates 3.8 (2.0-20.0) mg/dL Urine Opiates Screen (NEGATIVE) Ur Oxycodone Screen (NEGATIVE) Urine Methadone Screen (NEGATIVE) Ur Propoxyphene Screen (NEGATIVE) Acetaminophen (10.0-30.0) ug/mL Ur Barbiturates Screen (NEGATIVE) Ur Tricyclics Screen (NEGATIVE) Ur Phencyclidine Scrn (NEGATIVE) Ur Amphetamine Screen (NEGATIVE) U Methamphetamines Scrn (NEGATIVE) Urine MDMA Screen (NEGATIVE) U Benzodiazepines Scrn (NEGATIVE) U Cocaine Metab Screen (NEGATIVE) U Marijuana (THC) Screen (NEGATIVE) Ethyl Alcohol 311 mg/dL 11/22/17 Range/Units 21:53 WBC (4.5-11.0) K/uL RBC (3.30-5.50) M/uL Hgb (12.0-15.0) g/dL Hct (36.0-48.0) % MCV (80-98) fL MCH (27-31) pg MCHC (32-36) % Plt Count (150-400) K/uL Neut % (Auto) (36-66) % Lymph % (Auto) (24-44) % [place] % (Auto) (2-6) % Eos % (Auto) (2-4) % Baso % (Auto) (0-1) % Sodium (140-148) mmol/L Potassium (3.6-5.2) mmol/L Chloride (100-108) mmol/L Carbon Dioxide (21-32) mmol/L Anion Gap (5.0-14.0) mmol/L BUN (7-18) mg/dL Creatinine (0.6-1.0) mg/dL Est Cr Clr Drug Dosing mL/min Estimated GFR (MDRD) (>60) Glucose (74-106) mg/dL Calcium (8.5-10.1) mg/dL Total Bilirubin (0.2-1.0) mg/dL AST (15-37) U/L ALT (12-78) U/L Alkaline Phosphatase (46-116) U/L Ammonia (11-32) mmol/L Total Protein (6.4-8.2) g/dL Albumin (3.4-5.0) g/dL Globulin (2.3-3.5) g/dL Albumin/Globulin Ratio (1.2-2.2) Urine Color Urine Appearance Urine pH (4.5-8.0) Ur Specific [place] (1.008-1.030) Urine Protein (NEGATIVE) mg/dL Urine Glucose (UA) (NEGATIVE) mg/dL Urine Ketones (NEGATIVE) mg/dL Urine Occult Blood (NEGATIVE) Urine Nitrite (NEGATIVE) Urine Bilirubin (NEGATIVE) Urine Urobilinogen (NORMAL) mg/dL Ur Leukocyte Esterase (NEGATIVE) Urine RBC (0-5) Urine WBC (0-5) Ur Epithelial Cells Amorphous Sediment Urine Bacteria Urine Mucus Salicylates (2.0-20.0) mg/dL Urine Opiates Screen Negative (NEGATIVE) Ur Oxycodone Screen Positive H (NEGATIVE) Urine Methadone Screen Negative (NEGATIVE) Ur Propoxyphene Screen Negative (NEGATIVE) Acetaminophen (10.0-30.0) ug/mL Ur Barbiturates Screen Negative (NEGATIVE) Ur Tricyclics Screen Positive H (NEGATIVE) Ur Phencyclidine Scrn Negative (NEGATIVE) Ur Amphetamine Screen Negative (NEGATIVE) U Methamphetamines Scrn Negative (NEGATIVE) Urine MDMA Screen Negative (NEGATIVE) U Benzodiazepines Scrn Negative (NEGATIVE) U Cocaine Metab Screen Negative (NEGATIVE) U Marijuana (THC) Screen Positive H (NEGATIVE) Ethyl Alcohol mg/dL Medications Generic Name Dose Route Start Last Admin Trade Name Freq PRN Reason Stop Dose Admin Lactated Ringer's 1,000 mls @ 125 mls/hr 11/23/17 00:30 11/23/17 00:33 Ringers, Lactated IV 11/23/17 08:29 125 mls/hr BOLUS ONE Administration Discontinued Medications Generic Name Dose Route Start Last Admin Trade Name Freq PRN Reason Stop Dose Admin Diphenhydramine HCl 25 mg 11/22/17 22:02 11/22/17 22:19 Benadryl IVPUSH 04/10/18 22:03 25 mg ONETIME ONE Administration Fentanyl 100 mcg 11/23/17 02:25 11/23/17 02:33 Sublimaze IVPUSH 11/23/17 02:26 100 mcg ONETIME ONE Administration Haloperidol Lactate 5 mg 11/22/17 22:01 11/22/17 22:22 Haldol IVPUSH 11/22/17 22:02 5 mg ONETIME ONE Administration Multivitamins/Minerals 10 ml/ 1,016.2 mls @ 500 mls/hr 11/22/17 22:00 22:17 Thiamine HCl 200 mg/ Folic IV 11/23/17 00:01 500 mls/hr Acid 1 mg/ Magnesium Sulfate 2 ONETIME ONE Administration gm/ Dextrose/Lactated Ringer' s Potassium Chloride 40 meq/ 100 mls @ 25 mls/hr 11/22/17 22:57 Premix IV 11/23/17 02:56 ONETIME ONE Potassium Chloride 20 meq/ 100 mls @ 50 mls/hr 11/22/17 23:15 11/22/17 23:24 Premix IV 11/23/17 01:14 50 mls/hr ONETIME ONE Administration Ketamine HCl 20 mg 11/22/17 22:55 11/22/17 23:01 Ketalar IV 11/22/17 22:56 20 mg NOW STA Administration Ketamine HCl 40 mg 11/22/17 23:14 11/22/17 23:17 Ketalar IV 11/22/17 23:15 40 mg NOW STA Administration Lorazepam 2 mg 11/22/17 21:23 11/22/17 21:37 Ativan IVPUSH 11/22/17 21:24 2 mg .ONETIME ONE Administration Lorazepam 2 mg 11/23/17 02:25 11/23/17 02:40 Ativan IVPUSH 11/23/17 02:26 2 mg ONETIME ONE Administration Departure - Departure Time of Disposition: 02:48 Disposition: DC/Tfer to Acute Hospital 02 Condition: Poor Clinical Impression: Intoxication, Hypokalemia - Discharge Information Referrals: PCP,None [Primary Care Provider] - Forms: ED Department Discharge - My Orders Last 24 Hours: My Active Orders 11/22/17 21:26 Restraint Initiate Non-VIOL/Non-SD [OM.PC] Stat 11/22/17 21:29 Cervical Spine wo Cont [CT] Stat Head wo Cont [CT] Stat 11/22/17 21:53 DRUG SCREEN, URINE [URCHEM] Urgent UA W/MICROSCOPIC [URIN] Urgent 11/22/17 23:20 Max Facial Sinus wo Cont [CT] Stat 11/23/17 00:30 Lactated Ringers [Ringers, Lactated] 1,000 ml IV BOLUS - Assessment/Plan Last 24 Hours: My Active Orders 11/22/17 21:26 Restraint Initiate Non-VIOL/Non-SD [OM.PC] Stat 11/22/17 21:29 Cervical Spine wo Cont [CT] Stat Head wo Cont [CT] Stat 11/22/17 21:53 DRUG SCREEN, URINE [URCHEM] Urgent UA W/MICROSCOPIC [URIN] Urgent 11/22/17 23:20 Max Facial Sinus wo Cont [CT] Stat 11/23/17 00:30 Lactated Ringers [Ringers, Lactated] 1,000 ml IV BOLUS Plan: Assessment Acuity = acute Site and laterality = alcohol intoxication, C6 degenerative osteophyte fracture , right orbital floor fracture Etiology = secondary to fall Manifestations = none Location of injury = Home Lab values = CBC unremarkable, potassium low at 2.1 consistent hypokalemia, albumin low at 3.1 consistent hypoalbuminemia urine drug screen positive for oxycodone, tricyclics and cannabis alcohol is at 311 Plan Called discussed case with Dr. Matson emergency department physician at [facility], we currently have no beds at our facility he kindly accepted the patient in transport This note was dictated using [employer] voice recognition software please call with any questions on syntax or saloni.
[2017-11-22] MEDS ORDERED: MVI, Adult with Vitamin K 10 ML, Thiamine 200 MG, Folic Acid 1 MG, Magnesium Sulfate 2 ... IV ONE ×5 (22:00)
[2017-11-22] MEDS ORDERED: Haloperidol Lactate 5 MG/ML SDV IVPUSH ONE (22:01)
[2017-11-22] MEDS ORDERED: diphenhydrAMINE 50 MG/ML SDV IVPUSH ONE (22:02)
[2017-11-22] MEDS ORDERED: Ketamine 500 MG/5 ML MDV IV STA ×2 (22:55→23:14)
[2017-11-22] MEDS ORDERED: Potassium Chloride 40 MEQ in Premix Bag 1 BAG IV ONE (22:57)
[2017-11-22] MEDS ORDERED: Potassium Chloride 20 MEQ in Premix Bag 1 BAG IV ONE (23:15)
[2017-11-23] MEDS ORDERED: Lactated Ringers 1,000 ML IV ONE (00:30)
[2017-11-23] MEDS ORDERED: LORazepam 2 MG/ML SDV IVPUSH ONE (02:25)
[2017-11-23] MEDS ORDERED: fentaNYL 100 MCG/2 ML SDV IVPUSH ONE (02:25)
[2017-11-23 03:43] VITALS: BP 163/107
== END 2017-11-23 03:20 ==
LOC: JP.ED 21:03
DX: F10.129 Alcohol abuse with intoxication, unspecified (principal); E87.6 Hypokalemia; Z79.899 Other long term (current) drug therapy; Y90.8 Blood alcohol level of 240 mg/100 ml or more
CPT/HCPCS: 36415; 70450; 70486; 72125; 80053; 80305; 81001; 82140; 85025; 96361; 96365; 96366; 96375; 96376; 99285; G0480; J1200; J1630; J2060; J3010; J3411; J3475; J3480; J7042; J7120; J3490

== ENCOUNTER 2018-02-11 17:21 | Emergency (ER) | payer SELFPAY ==
[2018-02-11 17:23] VITALS: BP 104/69
== END 2018-02-11 18:20 | disposition left against medical advice (07) ==
LOC: JP.ED 17:21
DX: Z53.21 Procedure and treatment not carried out due to patient leaving prior to being seen by health care provider (principal)

== ENCOUNTER 2018-02-26 14:16 | Emergency (ER) | payer MEDICAID ==
[2018-02-26 15:18] VITALS: BP 137/90
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
== END 2018-02-26 15:39 | disposition left against medical advice (07) ==
LOC: JP.ED 14:16
DX: E87.6 Hypokalemia (principal); F19.90 Other psychoactive substance use, unspecified, uncomplicated; I10 Essential (primary) hypertension; F17.210 Nicotine dependence, cigarettes, uncomplicated; Z79.899 Other long term (current) drug therapy
CPT/HCPCS: 36415; 80053; 85025; 99285

== ENCOUNTER 2018-02-27 08:02 | Emergency (ER) | payer MEDICAID ==
[2018-02-27] MEDS ORDERED: Acetaminophen 500 MG Tab PO ONE (08:26)
[2018-02-27] MEDS ORDERED: Ketorolac 30 MG/ML SDV IM ONE (08:26)
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
[2018-02-27 08:38] VITALS: BP 156/111
--- NOTE | 2018-02-27 09:38 | CR ---
Clavicle Lt CLINICAL HISTORY: Pain, fall FINDINGS: There is a displaced fracture of the mid clavicle with overlying of the proximal on distal aspects. AC joint appears maintained. IMPRESSION: Displaced mid clavicular fracture
== END 2018-02-27 09:23 | disposition home or self-care (01) ==
LOC: JP.ED 08:02
DX: S42.022A Displaced fracture of shaft of left clavicle, initial encounter for closed fracture (principal)
CPT/HCPCS: 73000; 96372; 99284; A9270; J1885

== ENCOUNTER 2018-03-04 12:28 | Emergency (ER) | payer MEDICAID ==
[2018-03-04 12:42] VITALS: BP 189/121
--- NOTE | 2018-03-04 13:16 | EDM.PDOC ---
ED HPI GENERAL MEDICAL PROBLEM - General Chief Complaint: Upper Extremity Injury/Pain Stated Complaint: MEDICAL VIA [facility] Time Seen by Provider: 03/04/18 13:12 Source of Information: Reports: Patient, Old Records, RN Notes Reviewed History Limitations: Reports: No Limitations - History of Present Illness INITIAL COMMENTS - FREE TEXT/NARRATIVE: 57-year-old female presents to the emergency department with a complaint of left shoulder pain, she has a known history of mid shaft clavicular fracture was scheduled to follow-up with orthopedics for an appointment in clinic on of last week. Unfortunately she could not make the appointment due to inability to secure a ride, she presented to the emergency department today via EMS services. She states she did not receive a sling from her prior emergency department visit or prior visit with orthopedics. She states she is out of her pain medications - Related Data Allergies Allergy/AdvReac Type Severity Reaction Status Date / Time No Known Allergies Allergy Verified 03/04/18 12:52 Home Meds: Home Meds Zolpidem [Ambien] 10 mg PO BEDTIME PRN 11/15/13 [History] Cyclobenzaprine [Flexeril] 10 mg PO TID PRN 06/02/14 [History] DULoxetine HCl [Cymbalta] 60 mg PO BID 01/25/16 [History] Gabapentin [Neurontin] 400 mg PO 06/24/17 [History] Hydrocodone/Acetaminophen [[place] 7.5-325 Tablet] 1 tab PO BID PRN 06/24/17 [ History] Ibuprofen 600 mg PO Q6H PRN 06/24/17 [History] Morphine Sulfate [Morphine Sulfate ER] 30 mg PO BID 06/24/17 [History] Hydrocodone/Acetaminophen [[place] 7.5-325 Tablet] 1 each PO Q4HR PRN 02/27/18 [ History] hydroCHLOROthiazide [Hydrochlorothiazide] 25 mg PO DAILY 02/27/18 [History] Past Medical History Cardiovascular History: Reports: Hypertension Respiratory History: Reports: Other (See Below) Other Respiratory History: hx asp. 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 chronic back pain. reflex sympathetic dystrophy. restless legs Psychiatric History: Reports: Addiction, Depression, Other (See Below) Other Psychiatric History: overdose unknown --polysubstance abuse - Infectious Disease History Infectious Disease History: Reports: Other (See Below) Other Infectious Disease History: unable to obtain - Past Surgical History Cardiovascular Surgical History: Reports: None GI Surgical History: Reports: Cholecystectomy Neurological Surgical History: Reports: Discectomy, Lumbar Spine Musculoskeletal Surgical History: Reports: Other (See Below) Other Musculoskeletal Surgeries/Procedures:: fx left ulna unknown recent clavical fx Social & Family History - Family History Family Medical History: Noncontributory - Tobacco Use Smoking Status *Q: Never Smoker - Caffeine Use Caffeine Use: Reports: Coffee Other Caffeine Use: unknown Caffeine Use Comment: unknown Review of Systems - Review of Systems Review Of Systems: See Below Respiratory: Reports: No Symptoms Cardiovascular: Reports: No Symptoms Genitourinary: Reports: No Symptoms Musculoskeletal: Reports: Shoulder Pain ED EXAM, GENERAL - Physical Exam Exam: See Below Free Text/Narrative:: Examination of the left shoulder I do appreciate significant bruising there is a lump mid clavicular shaft Exam Limited By: No Limitations General Appearance: Alert, WD/WN, No Apparent Distress Respiratory/Chest: No Respiratory Distress, Lungs Clear, Normal Breath Sounds, No Accessory Muscle Use Cardiovascular: Regular Rate, Rhythm, No Murmur Course - Vital Signs Last Recorded V/S: Last Vital Signs Temp 97.9 F 03/04/18 13:00 Pulse 103 H 03/04/18 13:00 Resp 16 03/04/18 13:00 BP 189/121 H 03/04/18 13:00 Pulse Ox 96 03/04/18 13:00 - Orders/Labs/Meds Orders: Active Orders 24 hr Category Date Time Status DME for Discharge [COMM] Per Unit Routine Oth 03/04/18 13:11 Ordered Departure - Departure Time of Disposition: 13:15 Disposition: Home, Self-Care 01 Condition: Poor Clinical Impression: Fracture of clavicle, left, closed Qualifiers: Encounter type: subsequent encounter Clavicle location: shaft Fracture alignment: displaced - Discharge Information Referrals: PCP,None [Primary Care Provider] - Additional Instructions: Continue to use the sling for comfort and pain control, use hydrocodone for breakthrough pain, please call the orthopedic clinic at [facility] for a new appointment time, call return to the emergency department worsening of symptoms - My Orders Last 24 Hours: My Active Orders 03/04/18 13:11 DME for Discharge [COMM] Per Unit Routine - Assessment/Plan Last 24 Hours: My Active Orders 03/04/18 13:11 DME for Discharge [COMM] Per Unit Routine Plan: Assessment Acuity = acute Site and laterality = left clavicular fracture Etiology = secondary to a fall Manifestations = pain Location of injury = Home Lab values = none Plan She was provided a sling in the emergency department prescription written for hydrocodone 5/325 one tablet by mouth 3 times a day when necessary total #10 she will call on Tuesday to reschedule her orthopedics appointment This note was dictated using [employer] voice recognition software please call with any questions on syntax or grammar.
== END 2018-03-04 14:01 | disposition home or self-care (01) ==
LOC: JP.ED 12:28
DX: S42.022D Displaced fracture of shaft of left clavicle, subsequent encounter for fracture with routine healing (principal); W19.XXXD Unspecified fall, subsequent encounter; I10 Essential (primary) hypertension; F32.9 Major depressive disorder, single episode, unspecified; Z79.899 Other long term (current) drug therapy
CPT/HCPCS: 99283

== ENCOUNTER 2018-03-05 21:00 | Emergency (ER) | payer MEDICAID ==
[2018-03-05 21:11] VITALS: BP 183/130
--- NOTE | 2018-03-05 22:05 | EDM.PDOC ---
ED HPI GENERAL MEDICAL PROBLEM - General Chief Complaint: Upper Extremity Injury/Pain Stated Complaint: PAIN VIA NORTH Time Seen by Provider: 03/05/18 21:08 Source of Information: Reports: Patient History Limitations: Reports: No Limitations - History of Present Illness INITIAL COMMENTS - FREE TEXT/NARRATIVE: This lady is here for left clavicle pain. Fracture 02/27. plan surgery in [place]. Seen yesterday in ER out of pain meds. Rx #10 [place]. Out today. Supposed to see surgeon tomorrow. Said she called [place] and they told her to be re- evaluated in ER. Left Clavicle Pain Score (Numeric/FACES): 9 - Related Data Allergies Allergy/AdvReac Type Severity Reaction Status Date / Time No Known Allergies Allergy Verified 03/05/18 21:07 Home Meds: Home Meds Zolpidem [Ambien] 10 mg PO BEDTIME PRN 11/15/13 [History] Cyclobenzaprine [Flexeril] 10 mg PO TID PRN 06/02/14 [History] DULoxetine HCl [Cymbalta] 60 mg PO BID 01/25/16 [History] Gabapentin [Neurontin] 400 mg PO 5XDAY 06/24/17 [History] Hydrocodone/Acetaminophen [[place] 7.5-325 Tablet] 1 tab PO BID PRN 06/24/17 [ History] Ibuprofen 600 mg PO Q6H PRN 06/24/17 [History] Morphine Sulfate [Morphine Sulfate ER] 30 mg PO BID 06/24/17 [History] Hydrocodone/Acetaminophen [[place] 7.5-325 Tablet] 1 each PO Q4HR PRN 02/27/18 [ History] hydroCHLOROthiazide [Hydrochlorothiazide] 25 mg PO DAILY 02/27/18 [History] Past Medical History Cardiovascular History: Reports: Hypertension Respiratory History: Reports: Other (See Below) Other Respiratory History: hx asp. 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 chronic back pain. reflex sympathetic dystrophy. restless legs Psychiatric History: Reports: Addiction, Depression, Other (See Below) Other Psychiatric History: overdose unknown --polysubstance abuse - Infectious Disease History Infectious Disease History: Reports: Other (See Below) Other Infectious Disease History: unable to obtain - Past Surgical History Cardiovascular Surgical History: Reports: None GI Surgical History: Reports: Cholecystectomy Neurological Surgical History: Reports: Discectomy, Lumbar Spine Musculoskeletal Surgical History: Reports: Other (See Below) Other Musculoskeletal Surgeries/Procedures:: fx left ulna unknown recent clavical fx Social & Family History - Family History Family Medical History: Noncontributory - Tobacco Use Smoking Status *Q: Current Every Day Smoker Years of Tobacco use: 30 Packs/Tins Daily: 1 - Caffeine Use Caffeine Use: Reports: Coffee Other Caffeine Use: unknown Caffeine Use Comment: unknown - Recreational Drug Use Recreational Drug Use: No Review of Systems - Review of Systems Review Of Systems: ROS reveals no pertinent complaints other than HPI. ED EXAM, GENERAL - Physical Exam Exam: See Below Exam Limited By: No Limitations General Appearance: Alert, WD/WN, Mild Distress Extremities: Other (bruising ecchymosis to lt clavicle area. Otherwise nothing remarkable. NVT intact.) Course - Vital Signs Last Recorded V/S: Last Vital Signs Temp 37.1 C 03/05/18 21:10 Pulse 104 H 03/05/18 21:10 Resp 18 03/05/18 21:10 BP 183/130 H 03/05/18 21:10 Pulse Ox 98 03/05/18 21:10 - Re-Assessments/Exams Free Text/Narrative Re-Assessment/Exam: 03/05/18 22:04 I reveiwe [facility] database and see that she is chronic opiate user. She said she' s been off them for a few wks and supposed to start methadone program soon. I will give her meds tohold until tomorrow, #10 [place] 5/325 03/05/18 22:05 Departure - Departure Time of Disposition: 22:06 Disposition: Home, Self-Care 01 Condition: Fair Clinical Impression: Clavicle fracture Opioid dependence Qualifiers: Substance use status: uncomplicated Qualified Code(s): F11.20 - Opioid dependence, uncomplicated - Discharge Information Referrals: PCP,None [Primary Care Provider] - Additional Instructions: Use the [place] sparing ly. See the surgeon tomorrow as planned.
== END 2018-03-05 22:14 | disposition home or self-care (01) ==
LOC: JP.ED 21:00
DX: S42.002A Fracture of unspecified part of left clavicle, initial encounter for closed fracture (principal); F11.20 Opioid dependence, uncomplicated; F17.210 Nicotine dependence, cigarettes, uncomplicated; I10 Essential (primary) hypertension; F32.9 Major depressive disorder, single episode, unspecified; Z79.899 Other long term (current) drug therapy; X58.XXXA Exposure to other specified factors, initial encounter
CPT/HCPCS: 99284